=== PATIENT | female | born 1960 | race Caucasian/White ===

== ENCOUNTER 2018-09-10 09:32 | Inpatient (IN) ==
[2018-09-10] MEDS ORDERED: Vancomycin Inj 1,000 MG in Sodium Chlor 0.9% Inj 250 ML IV.SIG ONE (11:52)
[2018-09-10] MEDS ORDERED: Morphine Sulfate Inj 2 MG/ML Vial IV.PUSH ONE (11:53)
--- NOTE | 2018-09-10 11:58 | ED ---
HPI General Chief complaint: Skin/Abscess/Foreign Body Stated complaint: Left hip pain/swollen Time Seen by Provider: 09/10/18 11:36 History of Present Illness HPI narrative: Patient presents to the emergency department with left hip erythema, pain, increased swelling times 3 weeks. Patient is an IV drug user and states that she injects heroin in the affected area. 3 years ago patient had the same type symptoms and was admitted to [facility] for IV antibiotic I had aches and I&D. She is reporting fever of 103.7 approximately 3 days ago. She is also reporting sweating, chills, nausea but no vomiting advises that she used hot packs but that did not help and seem to make everything worse. Related Data Home Medications Medication Instructions Recorded Confirmed No Known Home Medications 09/10/18 09/10/18 Allergies Allergy/AdvReac Type Severity Reaction Status Date / Time clonidine Allergy Severe HIVES Unverified 09/10/18 09:54 Review of Systems ROS: all other systems reviewed are negative FOR[facility]LY [facility] Social History Social History Substance History: Active Abuse Second Hand Smoke Exposure: No Smoking Status: Former smoker Tobacco Type: Cigarettes How Often Do You Have a Drink Containing Alcohol: Never Recent Travel in [facility] within the Last 8 Weeks: No Recent Out of Country Travel within the Last 8 Weeks: No Substance Abuse Detail Heroin: Substance Use Status: Active Route Used Substance Abuse: Intravenously Reason for Use: Get High Immunization History Tetanus Immunization: Unsure Exam Narrative Exam Narrative: GENERAL: No acute distress. SKIN: Focused skin assessment warm/dry. HEAD: Atraumatic. Normocephalic. EYES: Pupils equal and round. No scleral icterus. No injection or drainage. ENT: No nasal bleeding or discharge. Mucous membranes pink and moist. NECK: Trachea midline. No JVD. CARDIOVASCULAR: Regular rate and rhythm. No murmur appreciated. RESPIRATORY: No accessory muscle use. Clear to auscultation. Breath sounds equal bilaterally. GASTROINTESTINAL: Abdomen soft, non-tender, nondistended. Hepatic and splenic margins not palpable. MUSCULOSKELETAL: Left hip erythema, induration, tenderness to palpation, limited range of motion secondary to pain, approximately 2 x 3 cm circular, fluctuant area in the center of erythema NEUROLOGICAL: Awake and alert. No obvious cranial nerve deficits. Motor grossly within normal limits. Normal speech. PSYCHIATRIC: Appropriate mood and affect; insight and judgment normal. Procedures Abscess I/D Site: other (LEFT HIP) Side (if applicable): left Sedation/analgesia: other Anesthetic used: lidocaine 1% Technique: incised with #11 blade Amount of fluid expressed (mL): 5 Irrigation: No Packing used?: none Complications: pain, bleeding and other (Pt did not tolerate procedure for me to correctly I & D abscess on LEFT HIP, states "get the f*& way from me") Course Initial Documented Vital Signs Temperature 97.6 F 09/10/18 09:50 Pulse Rate 73 09/10/18 09:50 Respiratory Rate 24 09/10/18 09:50 Blood Pressure 124/71 09/10/18 09:50 Pulse Oximetry 98 09/10/18 09:50 Last Documented Vital Signs Temperature 97.4 F L 09/11/18 08:00 Pulse Rate 64 09/11/18 08:00 Respiratory Rate 16 09/11/18 08:00 Blood Pressure 109/59 L 09/11/18 08:00 Pulse Oximetry 99 09/11/18 08:00 Medical Decision Making MDM Narrative Medical decision making narrative: Patient presents to the emergency department with left hip pain and swelling. Patient placed on charm filter operator helper, continuous pulse ox, and IV access obtained. Labs, 1 g IV vancomycin, CT with IV contrast of left hip, left hip x-ray, and 2 mg IV morphine ordered. 1550: Patient admitted to hospitalist. Asked that I call Ortho front elevator operator, Dr Larson, which I did and discussed the case. While in ER patient's abscess spontaneously burst. Wound culture and gram stain sent. Alem Aguillon, [employer] midlevel, attempted to I and D the abscess but patient wouldn't allow her to continue after incision was made. See Pal's procedure note. Medical Screen Exam Complete: Yes Emergency Medical Condition: Yes Differential Diagnosis Differential Diagnosis: Cellulitis, abscess, septic joint Lab Data Result diagrams: 09/10/18 12:20 09/10/18 12:20 Lab Results 09/10/18 09/10/18 09/10/18 Range/Units 12:20 12:20 12:20 WBC 11.7 H (4.0-11.0) th/mm3 RBC 4.37 (4.00-5.30) mil/mm3 Hgb 11.6 (11.6-15.3) gm/dL Hct 35.1 (35.0-46.0) % MCV 80.4 (80.0-100.0) fL MCH 26.6 L (27.0-34.0) pg MCHC 33.1 (32.0-36.0) % RDW 14.7 (11.6-17.2) % Plt Count 248 (150-450) th/mm3 MPV 8.0 (7.0-11.0) fL Neut % (Auto) 74.8 H (16.0-70.0) % Lymph % (Auto) 14.5 (9.0-44.0) % [place] % (Auto) 8.8 H (0.0-8.0) % Eos % (Auto) 1.4 (0.0-4.0) % Baso % (Auto) 0.5 (0.0-2.0) % Neut # (Auto) 8.8 H (1.8-7.7) th/mm3 Lymph # (Auto) 1.7 (1.0-4.8) th/mm3 [place] # (Auto) 1.0 H (0.0-0.9) th/mm3 Eos # (Auto) 0.2 (0.0-0.4) th/mm3 Baso # (Auto) 0.1 (0.0-0.2) th/mm3 WBC Differential . Differential Comment Auto diff final ESR (0-30) mm/hr PT 10.7 (9.8-11.6) sec INR 1.1 Ratio APTT 26.9 (23.4-31.7) sec Sodium 138 (136-145) meq/L Potassium 3.4 L (3.5-5.1) meq/L Chloride 105 (98-107) meq/L Carbon Dioxide 29.9 (21.0-32.0) meq/L Anion Gap 3 L (5-15) meq/L BUN 6 L (7-18) mg/dL Creatinine 0.51 (0.50-1.00) mg/dL Estimated GFR Greater than 89 (>89) mL/min Random Glucose 93 (74-106) mg/dL Calcium 8.5 (8.5-10.1) mg/dL Total Bilirubin 0.4 (0.2-1.0) mg/dL AST 38 H (15-37) U/L ALT 29 (10-53) U/L Alkaline Phosphatase 70 (45-117) U/L C-Reactive Protein (0.00-0.30) mg/dL Total Protein 6.9 (6.4-8.2) g/dL Albumin 2.6 L (3.4-5.0) g/dL Urine Color (Yellw/Straw) Urine Clarity (Clear) Urine pH (5.0-8.5) Ur Specific [place] (1.002-1.035) Urine Protein (Neg-Trace) mg/dL Urine Glucose (UA) (Negative) mg/dL Urine Ketones (Negative) mg/dL Urine Occult Blood (Negative) Urine Nitrate (Negative) Urine Bilirubin (Negative) Urine Urobilinogen (Less than 2) mg/dL Ur Leukocyte Esterase (Negative) Urine RBC (0-3) /hpf Urine WBC (0-5) /hpf Ur Squamous Epith Cells (0-5) /hpf Urine Bacteria (None) /hpf Urine Mucus (Occasional) /lpf Micro UA Comment Ur Microscopic Review Urine Culture Comments 09/10/18 09/10/18 09/10/18 Range/Units 12:20 12:20 12:54 WBC (4.0-11.0) th/mm3 RBC (4.00-5.30) mil/mm3 Hgb (11.6-15.3) gm/dL Hct (35.0-46.0) % MCV (80.0-100.0) fL MCH (27.0-34.0) pg MCHC (32.0-36.0) % RDW (11.6-17.2) % Plt Count (150-450) th/mm3 MPV (7.0-11.0) fL Neut % (Auto) (16.0-70.0) % Lymph % (Auto) (9.0-44.0) % [place] % (Auto) (0.0-8.0) % Eos % (Auto) (0.0-4.0) % Baso % (Auto) (0.0-2.0) % Neut # (Auto) (1.8-7.7) th/mm3 Lymph # (Auto) (1.0-4.8) th/mm3 [place] # (Auto) (0.0-0.9) th/mm3 Eos # (Auto) (0.0-0.4) th/mm3 Baso # (Auto) (0.0-0.2) th/mm3 WBC Differential Differential Comment ESR 45 H (0-30) mm/hr PT (9.8-11.6) sec INR Ratio APTT (23.4-31.7) sec Sodium (136-145) meq/L Potassium (3.5-5.1) meq/L Chloride (98-107) meq/L Carbon Dioxide (21.0-32.0) meq/L Anion Gap (5-15) meq/L BUN (7-18) mg/dL Creatinine (0.50-1.00) mg/dL Estimated GFR (>89) mL/min Random Glucose (74-106) mg/dL Calcium (8.5-10.1) mg/dL Total Bilirubin (0.2-1.0) mg/dL AST (15-37) U/L ALT (10-53) U/L Alkaline Phosphatase (45-117) U/L C-Reactive Protein 7.01 H (0.00-0.30) mg/dL Total Protein (6.4-8.2) g/dL Albumin (3.4-5.0) g/dL Urine Color Yellow (Yellw/Straw) Urine Clarity Clear (Clear) Urine pH 7.0 (5.0-8.5) Ur Specific Weston 1.003 (1.002-1.035) Urine Protein Negative (Neg-Trace) mg/dL Urine Glucose (UA) Negative (Negative) mg/dL Urine Ketones Negative (Negative) mg/dL Urine Occult Blood Negative (Negative) Urine Nitrate Negative (Negative) Urine Bilirubin Negative (Negative) Urine Urobilinogen 2.0 H (Less than 2) mg/dL Ur Leukocyte Esterase Trace H (Negative) Urine RBC 1 (0-3) /hpf Urine WBC 1 (0-5) /hpf Ur Squamous Epith Cells 1 (0-5) /hpf Urine Bacteria Rare H (None) /hpf Urine Mucus Few H (Occasional) /lpf Micro UA Comment Culture not ind Ur Microscopic Review Not Reportable Urine Culture Comments Culture not ind Imaging Data Radiologist's impression: Hip CT 09/10/18 11:50 CONCLUSION: 1. 6 x 3.2 cm area of induration with focal central fluid involving the subcutaneous tissues of the left flank inferiorly concerning for abscess. This appears confined to the subcutaneous soft tissues and fat. 2. The left hip is unremarkable in appearance. Hip X-Ray 09/10/18 11:53 CONCLUSION: No acute bony findings Discharge Plan Discharge Disposition Patient Disposition: 30 Still Patient Discharge Condition Condition: Stable Discharge Details Diagnosis: Cellulitis and abscess of left lower extremity, Abscess Physicians Team ED Provider: Ese Delgado Primary Care Provider: Aubrey Harrison Attending Provider: Shelton Laughlin Other Providers: Miguel Larson Todd A Status ED Status: Left Department Discharge Information Discharge Date/Time: 09/10/18 20:04
[2018-09-10 12:41] LABS: Baso # (Auto) 0.1 th/mm3 (0.0-0.2); Baso % (Auto) 0.5 % (0.0-2.0); Eos # (Auto) 0.2 th/mm3 (0.0-0.4); Eos % (Auto) 1.4 % (0.0-4.0); Hematocrit 35.1 % (35.0-46.0); Hemoglobin 11.6 gm/dL (11.6-15.3); Lymph # (Auto) 1.7 th/mm3 (1.0-4.8); Lymph % (Auto) 14.5 % (9.0-44.0); Mean Corpuscular HGB Conc 33.1 % (32.0-36.0); Mean Corpuscular Hemoglobin 26.6 pg (27.0-34.0); Mean Corpuscular Volume 80.4 fL (80.0-100.0); Mono % (Auto) 8.8 % (0.0-8.0); Neut # (Auto) 8.8 th/mm3 (1.8-7.7); Neut % (Auto) 74.8 % (16.0-70.0); Platelet Count 248 th/mm3 (150-450); Red Blood Count 4.37 mil/mm3 (4.00-5.30); Red Cell Distribution Width 14.7 % (11.6-17.2); White Blood Count 11.7 th/mm3 (4.0-11.0)
[2018-09-10 12:50] LABS: Activated Partial Thrombo Time 26.9 sec (23.4-31.7); INR 1.1 Ratio; Prothrombin Time 10.7 sec (9.8-11.6)
[2018-09-10 13:13] LABS: Alanine Aminotransferase 29 U/L (10-53); Albumin 2.6 g/dL (3.4-5.0); Anion Gap 3 meq/L (5-15); Aspartate Aminotransferase 38 U/L (15-37); Blood Urea Nitrogen 6 mg/dL (7-18); Calcium 8.5 mg/dL (8.5-10.1); Carbon Dioxide 29.9 meq/L (21.0-32.0); Chloride 105 meq/L (98-107); Glomerular Filtration Rate Greater Than 89 mL/min (>89); Glucose,Random 93 mg/dL (74-106); Potassium 3.4 meq/L (3.5-5.1); Sodium 138 meq/L (136-145)
[2018-09-10 13:15] LABS: Alkaline Phosphatase 70 U/L (45-117); Total Protein 6.9 g/dL (6.4-8.2)
[2018-09-10 13:17] LABS: Bacteria,Urine Rare /hpf; Bilirubin,Urine Negative (Negative); Clarity,Urine Clear (Clear); Color,Urine Yellow (Yellw/Straw); Glucose,Urine (UA) Negative (Negative); Leukocyte Esterase,Urine Trace (Negative); Mucus,Urine Few /lpf (Occasional); Nitrite,Urine Negative (Negative); Specific Gravity,Urine 1.003 (1.002-1.035); Squamous Epithelial Cell,Urine 1 /hpf (0-5)
--- NOTE | 2018-09-10 13:34 | XR ---
EXAM DATE: 09/10/2018 1:00 PM EST AGE/SEX: 58 years / Female INDICATIONS: Large swollen, red, painful area along left side, hip and upper left thigh, evaluate fo r abscess CLINICAL DATA: This is the patient's initial encounter. Patient reports that signs and symptoms have been present for 4 - 6 days and indicates a pain score of 9/10. MEDICAL/SURGICAL HISTORY: . IV drug user None. COMPARISON: No prior exams available for comparison. FINDINGS: Bony structures are intact and in normal alignment. Joints are intact without dislocation or signifi cant arthropathy. Osseous density is normal. Soft tissues are unremarkable. No radiopaque foreign bodies seen. CONCLUSION: No acute bony findings Electronically signed by: Dale Johnson MD 09/10/2018 1:33 PM EST
--- NOTE | 2018-09-10 14:33 | CT ---
EXAM DATE: 09/10/2018 2:25 PM EST AGE/SEX: 58 years / Female INDICATIONS: Left hip erythema and pain. Evaluate for abscess. CLINICAL DATA: This is the patient's initial encounter. Patient reports that signs and symptoms have been present for 3 weeks and indicates a pain score of 10/10. MEDICAL/SURGICAL HISTORY: . IV drug user. None. RADIATION DOSE: 26.19 CTDI (mGy) COMPARISON: No prior exams available for comparison. TECHNIQUE: Multiple contiguous axial images were acquired using a multirow detector CT scanner withou t contrast and after intravenous administration of 70 ml Omnipaque 350 (iohexol) nonionic water-solu ble contrast as a single exam dose. Multiplanar reconstruction was performed in the sagittal and cor onal planes. Using automated exposure control and adjustment of the mA and/or kV according to patien t size, radiation dose was kept as low as reasonably achievable to obtain optimal diagnostic quality images. DICOM format image data is available electronically for review and comparison. FINDINGS: Examination of the soft tissues along the lateral margin of the left hip demonstrate a large area of induration with a fluid collection measuring at least 6 x 3.2 cm. There is diffuse thickening of the skin above this. This would be concerning for abscess. This appears to be confined to the subcutaneou s soft tissues and fat. The bony structures of the pelvis are intact. The left hip is intact. The soft tissues of the pelvis or visualized. There is no free fluid. The loops of small large bowel are unremarkable. The exam does demonstrate some mildly enlarged nodes in the left inguinal canal likely reactive the largest measur es 1.3 cm. CONCLUSION: 1. 6 x 3.2 cm area of induration with focal central fluid involving the subcutaneous tissues of the left flank inferiorly concerning for abscess. This appears confined to the subcutaneous soft tissues and fat. 2. The left hip is unremarkable in appearance. Electronically signed by: Bob Estrada MD 09/10/2018 2:32 PM EST
--- NOTE | 2018-09-10 15:34 | P.HP ---
History of Present Illness Primary Care Physician: Aubrey Harrison MD Chief Complaint: Skin/Abscess/Foreign Body History of Present Illness: This is a pleasant 58 y/o Female who came to Emergency room with left hip erythema and edema, pain for the last three weeks, she is IV drug user and states that she injects heroin in the affected area. 3 years ago patient had the same type symptoms and was admitted to [facility] for IV antibiotic Status post I and D on that opportunity, reported fever 103.7 approximately 3 days ago. She is also reporting sweating, chills, nausea but no vomiting advises that she used hot packs but that did not help and seem to make everything worse. she has also Hypertension, tobacco dependence. Review of Systems All other systems reviewed negative except as stated in HPI [facility] - History History Provided By: Patient - Medical History Medical History: Medical History (Last Updated 09/10/18 @ 11:31 by Trixie Vasquez RN) Hypertension IV drug abuse - Family History Family History: Family History (Last Updated 09/10/18 @ 16:01 by Javier August MD) Other Family history non-contributory - Tobacco History Second Hand Smoke Exposure: No Tobacco Use In Past 30 Days: No Smoking Status: Former smoker Tobacco Type: Cigarettes - Alcohol History How Often Do You Have a Drink Containing Alcohol: Never - Substance Use History Substance History: Active Abuse - Substance Use Type Heroin Status: Active Route Used: Intravenously Reason for Use: Get High - Travel History Recent Travel in the [facility] Within the Last 8 Weeks: No Recent Travel Out of the Country Within the Last 8 Weeks: No - Immunization History Tetanus Immunization: Unsure Medications and Allergies Allergies Allergy/AdvReac Type Severity Reaction Status Date / Time clonidine Allergy Severe HIVES Unverified 09/10/18 09:54 Home Medications Medication Instructions Recorded Confirmed Type No Known Home Medications 09/10/18 09/10/18 History Exam Vital signs: Vital Signs 09/10/18 09:50 09/10/18 12:59 Temperature 97.6 F Pulse Rate 73 Respiratory Rate 24 19 Blood Pressure 124/71 Pulse Oximetry 98 Intake & Output 09/09/18 09/10/18 09/10/18 18:59 06:59 18:59 Intake Total 250 / 250 Balance 250 / 250 Weight 63.503 kg Intake: IV 250 / 250 Vancomycin Inj 1,000 MG In NS 250 / 250 Inj 250 ML @ 250 mls/hr IV.SIG ONCE ONE Rx#:[id number] Narrative: GENERAL: No acute distress. SKIN: Focused skin assessment warm/dry. HEAD: Atraumatic. Normocephalic. EYES: Pupils equal and round. No scleral icterus. No injection or drainage. ENT: No nasal bleeding or discharge. Mucous membranes pink and moist. NECK: Trachea midline. No JVD. CARDIOVASCULAR: Regular rate and rhythm. No murmur appreciated. RESPIRATORY: No accessory muscle use. Clear to auscultation. Breath sounds equal bilaterally. GASTROINTESTINAL: Abdomen soft, non-tender, nondistended. Hepatic and splenic margins not palpable. MUSCULOSKELETAL: Left hip erythema, induration, tenderness to palpation, limited range of motion secondary to pain, approximately 2 x 3 cm circular, fluctuant area in the center of erythema NEUROLOGICAL: Awake and alert. No obvious cranial nerve deficits. Motor grossly within normal limits. Normal speech. PSYCHIATRIC: Appropriate mood and affect; insight and judgment normal. Results - Labs CBC & Chem 7: 09/10/18 12:20 09/10/18 12:20 Labs: Laboratory Results - last 24 hr 09/10/18 09/10/18 09/10/18 12:20 12:20 12:20 WBC 11.7 H RBC 4.37 Hgb 11.6 Hct 35.1 MCV 80.4 MCH 26.6 L MCHC 33.1 RDW 14.7 Plt Count 248 MPV 8.0 Neut % (Auto) 74.8 H Lymph % (Auto) 14.5 [place] % (Auto) 8.8 H Eos % (Auto) 1.4 Baso % (Auto) 0.5 Neut # (Auto) 8.8 H Lymph # (Auto) 1.7 [place] # (Auto) 1.0 H Eos # (Auto) 0.2 Baso # (Auto) 0.1 WBC Differential . Differential Comment Auto diff final ESR PT 10.7 INR 1.1 APTT 26.9 Sodium 138 Potassium 3.4 L Chloride 105 Carbon Dioxide 29.9 Anion Gap 3 L BUN 6 L Creatinine 0.51 Estimated GFR Greater than 89 Random Glucose 93 Calcium 8.5 Total Bilirubin 0.4 AST 38 H ALT 29 Alkaline Phosphatase 70 C-Reactive Protein Total Protein 6.9 Albumin 2.6 L Urine Color Urine Clarity Urine pH Ur Specific [place] Urine Protein Urine Glucose (UA) Urine Ketones Urine Occult Blood Urine Nitrate Urine Bilirubin Urine Urobilinogen Ur Leukocyte Esterase Urine RBC Urine WBC Ur Squamous Epith Cells Urine Bacteria Urine Mucus Micro UA Comment Ur Microscopic Review Urine Culture Comments 09/10/18 09/10/18 09/10/18 12:20 12:20 12:54 WBC RBC Hgb Hct MCV MCH MCHC RDW Plt Count MPV Neut % (Auto) Lymph % (Auto) [place] % (Auto) Eos % (Auto) Baso % (Auto) Neut # (Auto) Lymph # (Auto) [place] # (Auto) Eos # (Auto) Baso # (Auto) WBC Differential Differential Comment ESR 45 H PT INR APTT Sodium Potassium Chloride Carbon Dioxide Anion Gap BUN Creatinine Estimated GFR Random Glucose Calcium Total Bilirubin AST ALT Alkaline Phosphatase C-Reactive Protein 7.01 H Total Protein Albumin Urine Color Yellow Urine Clarity Clear Urine pH 7.0 Ur Specific [place] 1.003 Urine Protein Negative Urine Glucose (UA) Negative Urine Ketones Negative Urine Occult Blood Negative Urine Nitrate Negative Urine Bilirubin Negative Urine Urobilinogen 2.0 H Ur Leukocyte Esterase Trace H Urine RBC 1 Urine WBC 1 Ur Squamous Epith Cells 1 Urine Bacteria Rare H Urine Mucus Few H Micro UA Comment Culture not ind Ur Microscopic Review Not Reportable Urine Culture Comments Culture not ind - Imaging Impressions Hip CT 09/10/18 11:50 CONCLUSION: 1. 6 x 3.2 cm area of induration with focal central fluid involving the subcutaneous tissues of the left flank inferiorly concerning for abscess. This appears confined to the subcutaneous soft tissues and fat. 2. The left hip is unremarkable in appearance. Hip X-Ray 09/10/18 11:53 CONCLUSION: No acute bony findings Caprini VTE Risk Assessment Caprini VTE Risk Assessment: Moderate/High Risk (score >= 2) Caprini Risk Assessment Model: Point Value = 1 Point Value = 2 Point Value = 3 Point Value = 5 Age 41-60 Minor surgery BMI > 25 kg/m2 Swollen legs Varicose veins or History of unexplained or recurrent spontaneous Oral contraceptives or hormone replacement Sepsis (< 1 month) Serious lung disease, including pneumonia (< 1 month) Abnormal pulmonary function Acute myocardial infarction Congestive heart failure (< 1 month) History of inflammatory bowel disease Medical patient at bed rest Age 61-74 Arthroscopic surgery Major open surgery (> 45 min) Laparoscopic surgery (> 45 min) Malignancy Confined to bed (> 72 hours) Immobilizing plaster cast Central venous access Age >= 75 History of VTE Family history of VTE Factor V Leiden Prothrombin [id number] Lupus anticoagulant Anticardiolipin antibodies Elevated serum homocysteine Heparin-induced thrombocytopenia Other congenital or acquired thrombophilia Stroke (< 1 month) Elective arthroplasty Hip, pelvis, or leg fracture Acute spinal cord injury (< 1 month) Prophylaxis Regimen: Total Risk Factor Score Risk Level Prophylaxis Regimen 0-1 Low Early ambulation 2 Moderate Order ONE of the following: *Sequential Compression Device (SCD) *Heparin 5000 units SQ BID 3-4 Higher Order ONE of the following medications: *Heparin 5000 units SQ TID *Enoxaparin/Lovenox 40 mg SQ daily (WT < 150 kg, CrCl > 30 mL/min) *Enoxaparin/Lovenox 30 mg SQ daily (WT < 150 kg, CrCl > 10-29 mL/min) *Enoxaparin/Lovenox 30 mg SQ BID (WT < 150 kg, CrCl > 30 mL/min) AND/OR *Sequential Compression Device (SCD) 5 or more Highest Order ONE of the following medications: *Heparin 5000 units SQ TID (Preferred with Epidurals) *Enoxaparin/Lovenox 40 mg SQ daily (WT < 150 kg, CrCl > 30 mL/min) *Enoxaparin/Lovenox 30 mg SQ daily (WT < 150 kg, CrCl > 10-29 mL/min) *Enoxaparin/Lovenox 30 mg SQ BID (WT < 150 kg, CrCl > 30 mL/min) AND *Sequential Compression Device (SCD) Assessment and Plan - Plan 1. Left Hip area abscess/Cellulitis started on Vancomycin and Zosyn CT confirmed superficial abscess draining by itself and may need Orthopedic surgery consult, pain medicine and follow blood cultures and wound culture. as per Doctor Delgado she discussed with Doctor Neo he is coming to see the patient may need drainage. on CT scan has 6 x 3.2 cm area of induration with focal central fluid involving the subcutaneous tissues of the left flank inferiorly concerning for abscess. appears confined to subcutaneous soft tissue and fat. 2. Hypertension to continue Home medicines. 3. IV drug abuse strongly recommended to stop behavior DVT prophylaxis with SCDs not awaiting for procedure Patient NPO for probable procedure continue IV fluids following blood cultures. Code Status: Full code. Discussed Condition With: Emergency medicine specialist Doctor Ese Delgado Input and recommendations highly appreciated. Discharge Planning: Once cleared by specialist
[2018-09-10] MEDS ORDERED: Acetaminophen 325 MG Tablet PO PRN (15:43)
[2018-09-10] MEDS ORDERED: Bisacodyl 10 MG Supp RECTAL PRN (15:43)
[2018-09-10] MEDS ORDERED: Vancomycin Consult Pharmacy OTHER PRN (15:46)
[2018-09-10] MEDS ORDERED: Morphine Sulfate Inj 2 MG/ML Vial IV.PUSH PRN (16:07)
[2018-09-10] MEDS: Sod Chloride 0.9% Inj 1,000 ML IV.CONT SCH (18:44)
[2018-09-10] MEDS: Piperacil/Tazo 3.375 GM Premix 50 ML IV.SIG SCH ×2 (18:59→22:04)
[2018-09-10] MEDS: Potassium Chlor 10 mEq Premix 10 MEQ/100 ML PIGGYBACK IV.SIG SCH ×3 (19:31→21:41)
[2018-09-10] MEDS: Senna/Docusate Sodium 8.6/50 MG Tablet PO SCH (21:40)
[2018-09-10] MEDS ORDERED: Potassium Chloride 25 MEQ Effervescent Tablet PO ONE (22:00)
[2018-09-11] MEDS ORDERED: Vancomycin Inj 1,000 MG in Sodium Chlor 0.9% Inj 250 ML IV.SIG SCH (01:00)
[2018-09-11] MEDS: Morphine Sulfate Inj 2 MG/ML Vial IM PRN ×3 (01:27→08:30)
[2018-09-11] MEDS: Sod Chloride 0.9% Inj 1,000 ML IV.CONT SCH ×4 (01:28→23:54)
--- NOTE | 2018-09-11 06:47 | P.CONOP ---
[facility] Orthopedics Consult Note - [facility] Consult date: 09/11/18 Chief complaint: Cellulitis, abscess Narrative: Jossie is a 58-year-old female. She presents the emergency room with a 3-week history of left hip pain and swelling. She has been using IV drugs for over 40 years. She presented to the emergency room with left hip pain, swelling, and redness. This pain is been worsening for the past [address] scan revealed a fluid collection. She has had fevers up to 103.7. She has been having chills and sweating. She has had some drainage over the past 2 days. Pain is progressively worsening. Review of Systems Patient denies weight loss, headache, visual changes, hearing loss, chest pain, palpitations, shortness of breath, nausea, vomiting, no urinary changes, diarrhea, bowel changes, neck pain, back pain, skin rashes, weakness of extremities, easy bleeding, enlarged lymph nodes, numbness of extremities, anxiety, or depression. She complains of left hip pain, swelling, erythema, drainage. She has had fevers, chills, and sweats. Patient's social history, past medical history, and family history were reviewed on chart and with patient. [facility] - History History Provided By: Patient - Medical History Medical History: Medical History (Last Reviewed 09/11/18 @ 06:44 by Tu Fitzpatrick MD) Hypertension IV drug abuse - Family History Family History: Family History (Last Reviewed 09/11/18 @ 06:44 by Tu Fitzpatrick MD) Other Family history non-contributory - Social History I have reviewed the patient's Social History: Yes - Tobacco History Second Hand Smoke Exposure: No Tobacco Use In Past 30 Days: No Smoking Status: Former smoker Tobacco Type: Cigarettes - Alcohol History How Often Do You Have a Drink Containing Alcohol: Never - Substance Use History Substance History: Active Abuse - Substance Use Type Heroin Status: Active Route Used: Intravenously Reason for Use: Get High - Travel History Recent Travel in the [place] Within the Last 8 Weeks: No Recent Travel Out of the Country Within the Last 8 Weeks: No - Immunization History Tetanus Immunization: Unsure Medications and Allergies Active Medications: Active Medications Acetaminophen (Tylenol) 650 mg PO Q4H PRN PRN Reason: Temp > 100.4 Al Hydroxide/Mg Hydroxide (Milk Of Magnesia Liq) 30 ml PO Q12H PRN PRN Reason: Mild Constipation Bisacodyl (Dulcolax Supp) 10 mg RECTAL DAILY PRN PRN Reason: SEVERE CONSITIPATION Sodium Chloride (Ns Inj) 1,000 mls @ 100 mls/hr IV.CONT .Q10H [facility] Last Infusion: 09/11/18 06:18 Dose: 0 mls/hr Piperacillin/Tazobactam/Dextrose (Zosyn 3.375 Gm Premix) 50 mls @ 100 mls/hr IV.SIG Q6H [facility] Last Infusion: 09/10/18 23:18 Dose: Infused Vancomycin HCl 1,000 mg/ (Sodium Chloride) 250 mls @ 250 mls/hr IV.SIG Q12H [facility] Lactulose (Lactulose Liq) 30 ml PO DAILY PRN PRN Reason: SEVERE CONSITIPATION Miscellaneous Information ([facility] Ordered Lab Info) 0 each OTHER ONCE ONE Stop: 09/12/18 00:46 Morphine Sulfate (Morphine Inj) 2 mg IM Q3H PRN PRN Reason: PAIN SCALE 6 TO 10 Last Admin: 09/11/18 04:55 Dose: 2 mg Ondansetron HCl (Zofran Inj) 4 mg IV.PUSH Q6H PRN PRN Reason: NAUSEA OR VOMITING Pharmacy Profile Note (Vancomycin Consult Pharmacy) 1 each OTHER UNSCH PRN PRN Reason: Pharmacy to dose Senna/Docusate Sodium (Ojcelynn-Colace) 1 tab PO BID [facility] Last Admin: 09/10/18 21:40 Dose: Not Given Sennosides (Senokot) 17.2 mg PO Q12H PRN PRN Reason: Moderate Constipation Allergies Allergy/AdvReac Type Severity Reaction Status Date / Time clonidine Allergy Severe HIVES Unverified 09/10/18 09:54 Home Medications Medication Instructions Recorded Confirmed Type No Known Home Medications 09/10/18 09/10/18 History Exam Vital signs: Vital Signs 09/10/18 09:50 09/10/18 12:59 09/10/18 15:00 Temperature 97.6 F Pulse Rate 73 76 Respiratory Rate 24 19 18 Blood Pressure 124/71 131/69 Pulse Oximetry 98 96 09/10/18 19:00 09/10/18 20:00 09/11/18 00:00 Temperature 97 F L 97.4 F L Pulse Rate 89 78 73 Respiratory Rate 16 16 17 Blood Pressure 122/80 108/53 L 112/54 L Pulse Oximetry 99 98 99 Intake & Output 09/10/18 09/10/18 09/11/18 06:59 18:59 06:59 Intake Total 250 / 250 1750 / 1750 Balance 250 / 250 1750 / 1750 Weight 63.503 kg 59.8 kg Intake: IV 250 / 250 550 / 550 NS Inj 1,000 ML @ 100 mls/hr IV 400 / 400 .CONT .Q10H [facility] Rx#:[id number] Zosyn 3.375 GM Premix 50 ML @ 100 / 100 100 mls/hr IV.SIG Q6H [facility] Rx#: [id number] KCl 10 mEq Premix Inj 10 meq In 50 / 50 100 ml @ 100 mls/hr IV.SIG Q1H [facility] Rx#:[id number] Vancomycin Inj 1,000 MG In NS 250 / 250 Inj 250 ML @ 250 mls/hr IV.SIG ONCE ONE Rx#:[id number] Oral 1200 / 1200 Other: # Voids 4 Date of Last Bowel Movement 09/10/18 Narrative: Jossie is a 58-year-old female. General: Awake and alert. No acute distress. Appears well-developed well- nourished Head: Normocephalic, atraumatic pupils are equal Neck: Soft, nontender, trachea midline Abdomen: Soft, nondistended Examination of right arm reveals no pain or deformity with shoulder, elbow, or wrist motion. She has multiple small ulcerations of her skin. There is significant scarring from IV drug use. No fluctuance is noted. Radial pulse is palpable. Normal capillary refill in fingers. Sensation is intact in radial , ulnar, and median nerve distributions. Shuttle Veneering Supervisor strength is +5. No lymphadenopathy noted. Examination of left arm reveals no pain or deformity with shoulder, elbow, or wrist motion. She has multiple small ulcerations of her skin. There is significant scarring from IV drug use. No fluctuance is noted. Radial pulse is palpable. Normal capillary refill in fingers. Sensation is intact in radial, ulnar, and median nerve distributions. Shuttle Veneering Supervisor strength is +5. No lymphadenopathy noted. Examination of left lower extremity reveals swelling, erythema, and warmth over her lateral hip and buttock region. There is a small amount of purulent drainage present. There appears to be an abscess under the skin. She has minimal pain with gentle hip, knee, or ankle motion. Sensation is intact in left foot. Dorsalis pedis pulse is palpable. Normal capillary refill and feet. Thigh and calf compartments are soft. No lymphadenopathy noted. +5 strength of ankle dorsiflexion and plantarflexion. Examination of right lower extremity reveals no pain or deformity with hip, knee , or ankle motion. Skin is intact. Sensation is intact in right foot. Dorsalis pedis pulse is palpable. Normal capillary refill and feet. Thigh and calf compartments are soft. No lymphadenopathy noted. +5 strength of ankle dorsiflexion and plantarflexion. Results - Labs Result Diagrams: 09/10/18 12:20 09/10/18 12:20 Labs: Laboratory Results - last 24 hr 09/10/18 09/10/18 09/10/18 12:20 12:20 12:20 WBC 11.7 H RBC 4.37 Hgb 11.6 Hct 35.1 MCV 80.4 MCH 26.6 L MCHC 33.1 RDW 14.7 Plt Count 248 MPV 8.0 Neut % (Auto) 74.8 H Lymph % (Auto) 14.5 [place] % (Auto) 8.8 H Eos % (Auto) 1.4 Baso % (Auto) 0.5 Neut # (Auto) 8.8 H Lymph # (Auto) 1.7 [place] # (Auto) 1.0 H Eos # (Auto) 0.2 Baso # (Auto) 0.1 WBC Differential . Differential Comment Auto diff final ESR PT 10.7 INR 1.1 APTT 26.9 Sodium 138 Potassium 3.4 L Chloride 105 Carbon Dioxide 29.9 Anion Gap 3 L BUN 6 L Creatinine 0.51 Estimated GFR Greater than 89 Random Glucose 93 Calcium 8.5 Total Bilirubin 0.4 AST 38 H ALT 29 Alkaline Phosphatase 70 C-Reactive Protein Total Protein 6.9 Albumin 2.6 L Urine Color Urine Clarity Urine pH Ur Specific [place] Urine Protein Urine Glucose (UA) Urine Ketones Urine Occult Blood Urine Nitrate Urine Bilirubin Urine Urobilinogen Ur Leukocyte Esterase Urine RBC Urine WBC Ur Squamous Epith Cells Urine Bacteria Urine Mucus Micro UA Comment Ur Microscopic Review Urine Culture Comments 09/10/18 09/10/18 09/10/18 12:20 12:20 12:54 WBC RBC Hgb Hct MCV MCH MCHC RDW Plt Count MPV Neut % (Auto) Lymph % (Auto) [place] % (Auto) Eos % (Auto) Baso % (Auto) Neut # (Auto) Lymph # (Auto) [place] # (Auto) Eos # (Auto) Baso # (Auto) WBC Differential Differential Comment ESR 45 H PT INR APTT Sodium Potassium Chloride Carbon Dioxide Anion Gap BUN Creatinine Estimated GFR Random Glucose Calcium Total Bilirubin AST ALT Alkaline Phosphatase C-Reactive Protein 7.01 H Total Protein Albumin Urine Color Yellow Urine Clarity Clear Urine pH 7.0 Ur Specific [place] 1.003 Urine Protein Negative Urine Glucose (UA) Negative Urine Ketones Negative Urine Occult Blood Negative Urine Nitrate Negative Urine Bilirubin Negative Urine Urobilinogen 2.0 H Ur Leukocyte Esterase Trace H Urine RBC 1 Urine WBC 1 Ur Squamous Epith Cells 1 Urine Bacteria Rare H Urine Mucus Few H Micro UA Comment Culture not ind Ur Microscopic Review Not Reportable Urine Culture Comments Culture not ind - Diagnostic results Imaging: Impressions Hip CT 09/10/18 11:50 CONCLUSION: 1. 6 x 3.2 cm area of induration with focal central fluid involving the subcutaneous tissues of the left flank inferiorly concerning for abscess. This appears confined to the subcutaneous soft tissues and fat. 2. The left hip is unremarkable in appearance. Hip X-Ray 09/10/18 11:53 CONCLUSION: No acute bony findings Hip CT: report reviewed, image reviewed Assessment and Plan - Assessment and Plan Jossie has a long history of IV drug use. She has developed an abscess over her left lateral hip and buttock area. At this point I would recommend surgical debridement. I will plan on surgery tomorrow. N.p.o. after midnight. She will need IV antibiotics as well. The risk and benefits of surgery were discussed with patient. All questions were answered. The risk and benefits of surgery were discussed in depth with patient. The risk of surgery include bleeding, infection, injuries to arteries, nerves, or blood vessels, infection, wound complications, and need for further surgery. I also discussed medical complications including blood clots, pneumonia, stroke, heart attack, and . Informed consent was obtained and all questions were answered. N.p.o. after midnight--plan on surgery MAGDA Dickey A mid-level provider in my office (nurse practitioner or physician ward assistant) may see this patient on follow-up visits and continue to implement the objectives of this plan including: Starting or adjusting medications, injections , cast application, orthotics, brace application, physical therapy, radiological studies (including x-ray, MRI, CT, ultrasound, bone scan), vascular studies, neurologic studies, specialist consultation, and proceeding with surgical management, as appropriate.
[2018-09-11] MEDS: Senna/Docusate Sodium 8.6/50 MG Tablet PO SCH ×2 (08:22→20:33)
[2018-09-11 09:27] LABS: Baso # (Auto) 0.1 th/mm3 (0.0-0.2); Baso % (Auto) 0.5 % (0.0-2.0); Eos # (Auto) 0.4 th/mm3 (0.0-0.4); Eos % (Auto) 2.8 % (0.0-4.0); Hematocrit 41.9 % (35.0-46.0); Hemoglobin 13.8 gm/dL (11.6-15.3); Lymph # (Auto) 2.5 th/mm3 (1.0-4.8); Lymph % (Auto) 18.8 % (9.0-44.0); Mean Corpuscular HGB Conc 32.9 % (32.0-36.0); Mean Corpuscular Volume 78.8 fL (80.0-100.0); Mean Platelet Volume 8.4 fL (7.0-11.0); Mono # (Auto) 0.9 th/mm3 (0.0-0.9); Mono % (Auto) 6.9 % (0.0-8.0); Neut # (Auto) 9.6 th/mm3 (1.8-7.7); Platelet Count 274 th/mm3 (150-450); Red Blood Count 5.32 mil/mm3 (4.00-5.30); Red Cell Distribution Width 14.8 % (11.6-17.2); White Blood Count 13.5 th/mm3 (4.0-11.0)
[2018-09-11] MEDS ORDERED: Influenza (Quadrivalent) Vaccine 0.5 ML Syringe IM ONE (09:30)
[2018-09-11 09:55] LABS: Ovalocytes 1+
[2018-09-11 10:03] LABS: Anion Gap 6 meq/L (5-15); Blood Urea Nitrogen 3 mg/dL (7-18); Calcium 8.8 mg/dL (8.5-10.1); Carbon Dioxide 24.7 meq/L (21.0-32.0); Chloride 112 meq/L (98-107); Glomerular Filtration Rate Greater Than 89 mL/min (>89); Glucose,Random 101 mg/dL (74-106); Potassium 4.4 meq/L (3.5-5.1)
[2018-09-11 10:08] LABS: Sodium 143 meq/L (136-145)
--- NOTE | 2018-09-11 10:36 | P.PN ---
Subjective Interval history: Follow-up left hip abscess history of IVDA. Wants to get off heroin and xanax no hallucinations Physical Exam Vital signs: Vital Signs 09/10/18 12:59 09/10/18 15:00 09/10/18 19:00 Temperature Pulse Rate 76 89 Respiratory Rate 19 18 16 Blood Pressure 131/69 122/80 Pulse Oximetry 96 99 09/10/18 20:00 09/11/18 00:00 09/11/18 06:52 Temperature 97 F L 97.4 F L Pulse Rate 78 73 Respiratory Rate 16 17 18 Blood Pressure 108/53 L 112/54 L Pulse Oximetry 98 99 09/11/18 08:00 Temperature 97.4 F L Pulse Rate 64 Respiratory Rate 16 Blood Pressure 109/59 L Pulse Oximetry 99 Intake & Output 09/10/18 09/11/18 09/11/18 18:59 06:59 18:59 Intake Total 250 / 250 1750 / 1750 Balance 250 / 250 1750 / 1750 Weight 63.503 kg 59.8 kg Intake: IV 250 / 250 550 / 550 NS Inj 1,000 ML @ 100 mls/hr IV 400 / 400 .CONT .Q10H [facility] Rx#:[id number] Zosyn 3.375 GM Premix 50 ML @ 100 / 100 100 mls/hr IV.SIG Q6H [facility] Rx#: [id number] KCl 10 mEq Premix Inj 10 meq In 50 / 50 100 ml @ 100 mls/hr IV.SIG Q1H [facility] Rx#:[id number] Vancomycin Inj 1,000 MG In NS 250 / 250 Inj 250 ML @ 250 mls/hr IV.SIG ONCE ONE Rx#:[id number] Oral 1200 / 1200 Other: # Voids 4 Date of Last Bowel Movement 09/10/18 Narrative: GENERAL: No acute distress. SKIN: Focused skin assessment warm/dry. CARDIOVASCULAR: Regular rate and rhythm. No murmur appreciated. RESPIRATORY: No accessory muscle use. Clear to auscultation. Breath sounds equal bilaterally. GASTROINTESTINAL: Abdomen soft, non-tender, nondistended. MUSCULOSKELETAL: Left hip erythema, induration, tenderness to palpation, limited range of motion secondary to pain, approximately 2 x 3 cm circular, fluctuant area in the center of erythema NEUROLOGICAL: Awake and alert. No obvious cranial nerve deficits. Motor grossly within normal limits. Normal speech. No tremors PSYCHIATRIC: Appropriate mood and affect; insight and judgment normal. Results - Labs CBC & Chem 7: 09/11/18 08:58 09/11/18 08:58 Laboratory Results - last 24 hr 09/10/18 09/10/18 09/10/18 12:20 12:20 12:20 WBC 11.7 H RBC 4.37 Hgb 11.6 Hct 35.1 MCV 80.4 MCH 26.6 L MCHC 33.1 RDW 14.7 Plt Count 248 MPV 8.0 Prelim Diff (Auto) Neut % (Auto) 74.8 H Lymph % (Auto) 14.5 [place] % (Auto) 8.8 H Eos % (Auto) 1.4 Baso % (Auto) 0.5 Neut # (Auto) 8.8 H Lymph # (Auto) 1.7 [place] # (Auto) 1.0 H Eos # (Auto) 0.2 Baso # (Auto) 0.1 WBC Differential . Diff Scan Differential Comment Auto diff final Ovalocytes ESR Hematology Comments PT 10.7 INR 1.1 APTT 26.9 Sodium 138 Potassium 3.4 L Chloride 105 Carbon Dioxide 29.9 Anion Gap 3 L BUN 6 L Creatinine 0.51 Estimated GFR Greater than 89 Random Glucose 93 Calcium 8.5 Total Bilirubin 0.4 AST 38 H ALT 29 Alkaline Phosphatase 70 C-Reactive Protein Total Protein 6.9 Albumin 2.6 L Urine Color Urine Clarity Urine pH Ur Specific [place] Urine Protein Urine Glucose (UA) Urine Ketones Urine Occult Blood Urine Nitrate Urine Bilirubin Urine Urobilinogen Ur Leukocyte Esterase Urine RBC Urine WBC Ur Squamous Epith Cells Urine Bacteria Urine Mucus Micro UA Comment Ur Microscopic Review Urine Culture Comments 09/10/18 09/10/18 09/10/18 12:20 12:20 12:54 WBC RBC Hgb Hct MCV MCH MCHC RDW Plt Count MPV Prelim Diff (Auto) Neut % (Auto) Lymph % (Auto) [place] % (Auto) Eos % (Auto) Baso % (Auto) Neut # (Auto) Lymph # (Auto) [place] # (Auto) Eos # (Auto) Baso # (Auto) WBC Differential Diff Scan Differential Comment Ovalocytes ESR 45 H Hematology Comments PT INR APTT Sodium Potassium Chloride Carbon Dioxide Anion Gap BUN Creatinine Estimated GFR Random Glucose Calcium Total Bilirubin AST ALT Alkaline Phosphatase C-Reactive Protein 7.01 H Total Protein Albumin Urine Color Yellow Urine Clarity Clear Urine pH 7.0 Ur Specific [place] 1.003 Urine Protein Negative Urine Glucose (UA) Negative Urine Ketones Negative Urine Occult Blood Negative Urine Nitrate Negative Urine Bilirubin Negative Urine Urobilinogen 2.0 H Ur Leukocyte Esterase Trace H Urine RBC 1 Urine WBC 1 Ur Squamous Epith Cells 1 Urine Bacteria Rare H Urine Mucus Few H Micro UA Comment Culture not ind Ur Microscopic Review Not Reportable Urine Culture Comments Culture not ind 09/11/18 09/11/18 08:58 08:58 WBC 13.5 H RBC 5.32 H Hgb 13.8 D Hct 41.9 MCV 78.8 L MCH 26.0 L MCHC 32.9 RDW 14.8 Plt Count 274 MPV 8.4 Prelim Diff (Auto) Slide review pending Neut % (Auto) 71.0 H Lymph % (Auto) 18.8 [place] % (Auto) 6.9 Eos % (Auto) 2.8 Baso % (Auto) 0.5 Neut # (Auto) 9.6 H Lymph # (Auto) 2.5 [place] # (Auto) 0.9 Eos # (Auto) 0.4 Baso # (Auto) 0.1 WBC Differential . Diff Scan Auto diff confirmed Differential Comment . Ovalocytes 1+ H ESR Hematology Comments PT INR APTT Sodium 143 Potassium 4.4 D Chloride 112 H Carbon Dioxide 24.7 Anion Gap 6 BUN 3 L Creatinine 0.48 L Estimated GFR Greater than 89 Random Glucose 101 Calcium 8.8 Total Bilirubin AST ALT Alkaline Phosphatase C-Reactive Protein Total Protein Albumin Urine Color Urine Clarity Urine pH Ur Specific [place] Urine Protein Urine Glucose (UA) Urine Ketones Urine Occult Blood Urine Nitrate Urine Bilirubin Urine Urobilinogen Ur Leukocyte Esterase Urine RBC Urine WBC Ur Squamous Epith Cells Urine Bacteria Urine Mucus Micro UA Comment Ur Microscopic Review Urine Culture Comments Microbiology 09/10/18 15:40 Abscess - Hip Gram Stain - Final - Imaging ITS Impressions Hip CT 09/10/18 11:50 CONCLUSION: 1. 6 x 3.2 cm area of induration with focal central fluid involving the subcutaneous tissues of the left flank inferiorly concerning for abscess. This appears confined to the subcutaneous soft tissues and fat. 2. The left hip is unremarkable in appearance. Hip X-Ray 09/10/18 11:53 CONCLUSION: No acute bony findings Assessment and Plan - Plan 1. Left Hip area abscess/Cellulitis with sepsis started on Vancomycin and Zosyn CT confirmed superficial abscess will need debridement by orthopedic surgery and follow blood cultures and wound cultures. Pain management counseled regarding narcotic 2. Hypertension to continue Home medicines. 3. IV drug abuse strongly recommended to stop behavior. Consider Methadone. Librium to cover WD DVT prophylaxis with SCDs hold pharmacological prophylaxis awaiting for procedure
[2018-09-11] MEDS: Piperacil/Tazo 3.375 GM Premix 50 ML IV.SIG SCH ×4 (10:58→23:54)
[2018-09-11] MEDS: Morphine Sulfate Inj 2 MG/ML Vial IV.PUSH PRN ×4 (12:23→21:45)
[2018-09-11] MEDS: Vancomycin Inj 1,000 MG in Sodium Chlor 0.9% Inj 250 ML IV.SIG SCH (23:54)
[2018-09-12] MEDS: Morphine Sulfate Inj 2 MG/ML Vial IV.PUSH PRN ×7 (00:49→23:49)
[2018-09-12] MEDS ORDERED: Chlorhexidine Gluconate 2% 1 Pack (2 Cloths) TOPICAL ONE (02:55)
[2018-09-12] MEDS ORDERED: Sodium Chlor 0.9% Inj 500 ML IV.SIG SCH (03:00)
[2018-09-12] MEDS: Piperacil/Tazo 3.375 GM Premix 50 ML IV.SIG SCH ×5 (03:44→23:53)
[2018-09-12 06:33] LABS: Glomerular Filtration Rate Greater Than 89 mL/min (>89)
[2018-09-12] MEDS: Senna/Docusate Sodium 8.6/50 MG Tablet PO SCH ×2 (08:30→22:52)
--- NOTE | 2018-09-12 09:26 | P.PN ---
Subjective Interval history: Follow-up left hip abscess. Seen in PACU wants to drink water. Physical Exam Vital signs: Vital Signs 09/11/18 12:00 09/11/18 16:00 09/11/18 20:00 Temperature 97.3 F L 97.7 F 97.8 F Pulse Rate 79 73 75 Respiratory Rate 17 18 Blood Pressure 122/59 L 120/71 132/62 Pulse Oximetry 100 17 L 99 09/12/18 00:00 Temperature 97.4 F L Pulse Rate 65 Respiratory Rate 18 Blood Pressure 126/72 Pulse Oximetry 100 Intake & Output 09/11/18 09/12/18 09/12/18 18:59 06:59 18:59 Intake Total 2200 / 2200 400 / 400 Balance 2200 / 2200 400 / 400 Weight 59.3 kg Intake: IV 300 / 300 400 / 400 Zosyn 3.375 GM Premix 50 ML @ 50 / 50 150 / 150 100 mls/hr IV.SIG Q6H [facility] Rx#: [id number] Vancomycin Inj 1,000 MG In NS 250 / 250 250 / 250 Inj 250 ML @ 250 mls/hr IV.SIG Q12H [facility] Rx#:[id number] Oral 1900 / 1900 Other: # Voids 6 2 Date of Last Bowel Movement 09/11/18 09/11/18 # Bowel Movements 6 Narrative: GENERAL: No acute distress. SKIN: Focused skin assessment warm/dry. CARDIOVASCULAR: Regular rate and rhythm. No murmur appreciated. RESPIRATORY: No accessory muscle use. Clear to auscultation. Breath sounds equal bilaterally. GASTROINTESTINAL: Abdomen soft, non-tender, nondistended. MUSCULOSKELETAL: Left hip with dry dressing NEUROLOGICAL: Awake and alert. No obvious cranial nerve deficits. Motor grossly within normal limits. Normal speech. No tremors PSYCHIATRIC: Appropriate mood and affect; insight and judgment normal. Results - Labs CBC & Chem 7: 09/11/18 08:58 09/12/18 05:05 Laboratory Results - last 24 hr 09/11/18 09/11/18 09/12/18 08:58 08:58 05:05 WBC 13.5 H RBC 5.32 H Hgb 13.8 D Hct 41.9 MCV 78.8 L MCH 26.0 L MCHC 32.9 RDW 14.8 Plt Count 274 MPV 8.4 Prelim Diff (Auto) Slide review pending Neut % (Auto) 71.0 H Lymph % (Auto) 18.8 [place] % (Auto) 6.9 Eos % (Auto) 2.8 Baso % (Auto) 0.5 Neut # (Auto) 9.6 H Lymph # (Auto) 2.5 [place] # (Auto) 0.9 Eos # (Auto) 0.4 Baso # (Auto) 0.1 WBC Differential . Diff Scan Auto diff confirmed Differential Comment . Ovalocytes 1+ H Hematology Comments Sodium 143 Potassium 4.4 D Chloride 112 H Carbon Dioxide 24.7 Anion Gap 6 BUN 3 L Creatinine 0.48 L 0.54 Estimated GFR Greater than 89 Greater than 89 Random Glucose 101 Calcium 8.8 Microbiology 09/10/18 15:40 Abscess - Hip Gram Stain - Final 09/10/18 15:40 Abscess - Hip Wound Culture - Preliminary Staphylococcus aureus 09/10/18 12:20 Blood - Peripheral Aerobic Blood Culture - Preliminary No growth in 1 day 09/10/18 12:20 Blood - Peripheral Anaerobic Blood Culture - Preliminary No growth in 1 day 09/10/18 12:05 Blood - Peripheral Aerobic Blood Culture - Preliminary No growth in 1 day 09/10/18 12:05 Blood - Peripheral Anaerobic Blood Culture - Preliminary No growth in 1 day - Imaging ITS Impressions Hip CT 09/10/18 11:50 CONCLUSION: 1. 6 x 3.2 cm area of induration with focal central fluid involving the subcutaneous tissues of the left flank inferiorly concerning for abscess. This appears confined to the subcutaneous soft tissues and fat. 2. The left hip is unremarkable in appearance. Hip X-Ray 09/10/18 11:53 CONCLUSION: No acute bony findings - Procedures Irrigation and debridement of left hip abscess Assessment and Plan - Plan 1. Left Hip area abscess/Cellulitis with sepsis started on Vancomycin and Zosyn CT confirmed superficial abscess status post Irrigation and debridement of left hip abscess follow blood cultures and wound cultures growing staph aureus additional cultures taken from the OR will monitor pain management counseled regarding narcotic 2. Hypertension. Monitor 3. IV drug (heroin and Xanax) abuse strongly recommended to stop behavior. Consider Methadone. Librium to cover WD DVT prophylaxis with SCDs pharmacological prophylaxis per orthopedic surgery
--- NOTE | 2018-09-12 10:33 | P.OP ---
- Preoperative Diagnosis (1) Cellulitis and abscess of left lower extremity (2) Abscess Date of procedure: 09/12/18 Procedure: Irrigation and debridement of left hip abscess Anesthesia: GETA Surgeon: Tu Fitzpatrick MD Industrial Relations Worker: SEDA Szymanski PA-C The surgical procedure was assisted by my physician pest controller assistant. My P.A. presence was necessary throughout this case for the manipulation and positioning of the surgical extremity. My P.A. was assisting me throughout the duration of this procedure. The skill set of a physician pest controller assistant was medically necessary to complete this procedure. During the surgical case the assembler surgical garment was working at the back table and the physician pest controller assistant was directly assisting me. Operation and Findings: Jossie is a 58-year-old female who has a long history of IV drug use. She presented to the hospital with complaints of left hip swelling, redness, and pain. CT scan revealed a abscess of the left hip and thigh. Informed consent was obtained and OpSite was marked. The risk and benefits of surgery were discussed and informed consent was confirmed. Operative site was marked. She is brought the operating room. She is given IV sedation and general anesthesia. She was placed in lateral decubitus position. Timeout procedure was performed. The operative hip was prepped with alcohol followed by DuraPrep and draped in usual sterile fashion. Procedure began with a 4 inch incision over the center of the fluctuant area of the hip. Subcutaneous tissue was dissected with Bovie. There was a thick purulent drainage present. There was also thickened tissue around the abscess. The abscess appeared to be relatively chronic in nature. Tissue cultures were obtained. The abscess was now thoroughly debrided. The abscess extended down into the gluteus fascia. An excisional debridement was performed with curettes, Ronguer, and scalpel. After completion of debridement, the wound was thoroughly irrigated with pulsatile lavage. A drain was placed deep. Subcutaneous tissue was closed with 3-0 PDS and skin was closed with 3-0 nylon. Sterile dressings were applied. Patient was awakened and transferred to recovery room in stable condition.
[2018-09-12] MEDS ORDERED: fentaNYL Citrate Inj 100 MCG/2 ML Ampul ONE (11:03)
--- NOTE | 2018-09-12 11:29 | ECG ---
Date Performed: 09/12/2018 Time Performed: 07:09:16 PTAGE: 58 years EKG: Sinus rhythm NORMAL ECG PREVIOUS TRACING : 10/30/2011 15.48 DOCTOR: Michael Devine Interpretating Date/Time 09/12/2018 11:27:56
[2018-09-12] MEDS: Vancomycin Inj 1,000 MG in Sodium Chlor 0.9% Inj 250 ML IV.SIG SCH (12:20)
[2018-09-12] MEDS: Sod Chloride 0.9% Inj 1,000 ML IV.CONT SCH ×2 (12:23→19:36)
[2018-09-12] MEDS ORDERED: Naloxone Inj 0.4 MG/ML Vial IV.PUSH PRN (12:32)
[2018-09-12] MEDS ORDERED: Pharmacy Ordered Lab Info OTHER ONE (22:45)
[2018-09-13] MEDS: Vancomycin Inj 1,000 MG in Sodium Chlor 0.9% Inj 250 ML IV.SIG SCH ×2 (00:31→10:49)
[2018-09-13] MEDS: Morphine Sulfate Inj 2 MG/ML Vial IV.PUSH PRN ×5 (03:51→20:51)
[2018-09-13] MEDS: Sod Chloride 0.9% Inj 1,000 ML IV.CONT SCH ×3 (03:54→21:01)
[2018-09-13] MEDS: Piperacil/Tazo 3.375 GM Premix 50 ML IV.SIG SCH (06:47)
--- NOTE | 2018-09-13 08:17 | P.PNOP ---
Subjective Interval history: POD 1 s/p I&D left hip doing welll pain controlled. no new complaints Physical Exam Vital signs: Vital Signs 09/12/18 10:55 09/12/18 11:00 09/12/18 11:15 Temperature 97.4 F L 97.6 F Pulse Rate 73 68 63 Respiratory Rate 14 14 14 Blood Pressure 118/69 127/76 134/75 Pulse Oximetry 100 100 100 09/12/18 12:00 09/12/18 16:00 09/12/18 20:00 Temperature 97.2 F L 97.1 F L 97.9 F Pulse Rate 58 L 67 69 Respiratory Rate 17 17 17 Blood Pressure 137/63 137/70 113/64 Pulse Oximetry 96 95 94 L 09/13/18 00:00 09/13/18 02:20 09/13/18 04:00 Temperature 97.5 F L 97.9 F Pulse Rate 91 H 56 L Respiratory Rate 17 18 18 Blood Pressure 128/75 137/71 Pulse Oximetry 96 96 09/13/18 07:56 Temperature 97.8 F Pulse Rate 61 Respiratory Rate 18 Blood Pressure 127/60 Pulse Oximetry 99 Intake & Output 09/12/18 09/13/18 09/13/18 18:59 06:59 18:59 Intake Total 1225 / 1225 1530 / 1530 Output Total Balance 1210 / 1210 1530 / 1530 -30 Weight 58.6 kg 60 kg Intake: IV 300 / 300 450 / 450 Ofirmev Inj 1,000 mg In 100 ml 100 / 100 @ 0 mls/hr IV.SIG .STK-MED ONE Rx#:[id number] Zosyn 3.375 GM Premix 50 ML @ 50 / 50 100 / 100 100 mls/hr IV.SIG Q6H [facility] Rx#: [id number] Vancomycin Inj 1,000 MG In NS 250 / 250 250 / 250 Inj 250 ML @ 250 mls/hr IV.SIG Q12H [facility] Rx#:[id number] Oral 925 / 925 1080 / 1080 Output: Estimated Blood Loss 10 Wound Drainage 5 / # 1 Left Hip 5 / 5 # 1 Left Hip ALEXIS Drain Other: # Voids 3 4 Date of Last Bowel Movement 09/12/18 Weight On Admission 58.6 kg Narrative: LLE: dressings clean and dry. intact. +drain. nvi Results - Labs CBC & Chem 7: 09/11/18 08:58 09/12/18 05:05 Laboratory Results - last 24 hr 09/13/18 00:09 Vancomycin Trough 12.7 H Microbiology 09/12/18 10:24 Abscess - Hip Fungal Smear - Final No fungal elements seen 09/12/18 10:24 Abscess - Hip Gram Stain - Final 09/10/18 12:20 Blood - Peripheral Aerobic Blood Culture - Preliminary No growth in 2 days 09/10/18 12:20 Blood - Peripheral Anaerobic Blood Culture - Preliminary No growth in 2 days 09/10/18 12:05 Blood - Peripheral Aerobic Blood Culture - Preliminary No growth in 2 days 09/10/18 12:05 Blood - Peripheral Anaerobic Blood Culture - Preliminary No growth in 2 days 09/10/18 15:40 Abscess - Hip Gram Stain - Final 09/10/18 15:40 Abscess - Hip Wound Culture - Final Staphylococcus aureus - Procedures Irrigation and debridement of left hip abscess Assessment and Plan - Assessment and Plan 1) Left Hip Abscess s/p I&D - POD 1 -WBAt -daily dressing changes POD 2 -monitor cultures. ID to follow -will need IV Abx -DC drain POD 2 if minimal drainage -ortho surgeries complete -f/u with Angela or SUSANNE in 2 weeks for wound check
--- NOTE | 2018-09-13 10:58 | P.CONID ---
History of Present Illness Service: Infectious Disease Consult date: 09/13/18 Requesting Physician: Shelton Laughlin Reason for Consult: Evaluate patient with left hip abscess Primary Care Provider: Aubrey Harrison MD Chief Complaint: Skin/Abscess/Foreign Body History of Present Illness: Patient seen and examined. Records reviewed. Patient is a 58-year-old female, with long-standing history of IV drug use, she injects usually heroin, has been injecting mostly in her upper arms, and recently started injecting on her lower extremity. She presented to the hospital complaining of 3-week history of pain swelling and redness on her left hip area where she was injecting. She apparently just injected in her L hip one time. She also has been injecting in her legs. She admits to some fevers. She was admitted to the hospital and imaging study showed evidence of an abscess which looks more subcutaneous. She went to surgery and had I&D of the left hip abscess. There was no mention of any involvement of the joint. Since admission she has not been febrile. Her white count is elevated. Sed rate is 35 and C-reactive protein 7. Blood cultures have been negative. Culture from surgery is growing MSSA. Infectious disease consultation has been requested to assist with evaluation and treatment. Review of Systems Constitutional: Reports fever(s), Reports night sweats Eyes: Denies discharge, Denies dry eyes Ears, Nose, Mouth, and Throat: Denies difficulty swallowing, Denies nasal discharge, Denies pain with swallowing, Denies sore throat Cardiovascular: Denies chest pain, Denies shortness of breath Respiratory: Denies chest congestion, Denies cough, Denies shortness of breath Gastrointestinal: Denies abdominal pain, Denies loose stools, Denies nausea, Denies pain with swallowing, Denies vomiting Genitourinary: Denies difficulty urinating, Denies painful urination Musculoskeletal: Reports joint pain, Reports joint swelling Skin/Breast: Reports sores, Reports wounds Neurologic: Denies headache(s) PMFSH - History History Provided By: Patient - Medical History Medical History: Medical History (Last Reviewed 09/13/18 @ 10:52 by Le Nunez MD) Hypertension IV drug abuse - Family History Family History: Family History (Last Reviewed 09/13/18 @ 10:53 by Le Nunez MD) Other Family history non-contributory - Tobacco History Second Hand Smoke Exposure: No Tobacco Use In Past 30 Days: No Smoking Status: Former smoker Tobacco Type: Cigarettes - Alcohol History How Often Do You Have a Drink Containing Alcohol: Never - Substance Use History Substance History: Active Abuse - Substance Use Type Heroin Status: Active Route Used: Intravenously Last Used: 09/09/2018 Reason for Use: Get High - Travel History Recent Travel in the [place] Within the Last 8 Weeks: No Recent Travel Out of the Country Within the Last 8 Weeks: No - Immunization History Tetanus Immunization: Unsure Hx Influenza Vaccine This Season: No Medications and Allergies Active Medications: Active Medications Acetaminophen (Tylenol) 650 mg PO Q4H PRN PRN Reason: Temp > 100.4 Hydrocodone Bitart/Acetaminophen (Donner 5/325) 1 tab PO Q4H PRN PRN Reason: PAIN SCALE 3 TO 5 Hydrocodone Bitart/Acetaminophen (Donner 10/325) 1 tab PO Q4H PRN PRN Reason: PAIN SCALE 6 TO 10 Last Admin: 09/13/18 06:46 Dose: 1 tab Al Hydroxide/Mg Hydroxide (Milk Of Magnesia Liq) 30 ml PO Q12H PRN PRN Reason: Mild Constipation Bisacodyl (Dulcolax Supp) 10 mg RECTAL DAILY PRN PRN Reason: SEVERE CONSITIPATION Chlordiazepoxide (Librium) 5 mg PO Q12H PRN PRN Reason: ANXIETY AND/OR AGITATION Diphenhydramine HCl (Benadryl) 25 mg PO Q6H PRN PRN Reason: ITCHING Sodium Chloride (Ns Inj) 1,000 mls @ 100 mls/hr IV.CONT .Q10H [facility] Last Admin: 09/13/18 03:54 Dose: 100 mls/hr Piperacillin/Tazobactam/Dextrose (Zosyn 3.375 Gm Premix) 50 mls @ 100 mls/hr IV.SIG Q6H [facility] Last Admin: 09/13/18 06:47 Dose: 100 mls/hr Vancomycin HCl 1,000 mg/ (Sodium Chloride) 250 mls @ 250 mls/hr IV.SIG Q12H [facility] Last Infusion: 09/13/18 01:35 Dose: Infused Sodium Chloride (Ns Inj) 500 mls @ 30 mls/hr IV.SIG .Q10H [facility] Last Admin: 09/12/18 12:23 Dose: Not Given Lactulose (Lactulose Liq) 30 ml PO DAILY PRN PRN Reason: SEVERE CONSITIPATION Miscellaneous Information (Misc Nursing Information) 0 each OTHER UNSCH PRN PRN Reason: SEE LABEL COMMENTS Stop: 09/13/18 10:56 Morphine Sulfate (Morphine Inj) 2 mg IV.PUSH Q3H PRN PRN Reason: BREAKTHROUGH PAIN Last Admin: 09/13/18 08:04 Dose: 2 mg Naloxone HCl (Narcan Inj) 0.4 mg IV.PUSH UNSCH PRN PRN Reason: SEE LABEL COMMENTS Ondansetron HCl (Zofran Inj) 4 mg IV.PUSH Q6H PRN PRN Reason: NAUSEA OR VOMITING Pharmacy Profile Note (Vancomycin Consult Pharmacy) 1 each OTHER UNSCH PRN PRN Reason: Pharmacy to dose Senna/Docusate Sodium (Jocelynn-Colace) 1 tab PO BID [facility] Last Admin: 09/12/18 22:52 Dose: Not Given Sennosides (Senokot) 17.2 mg PO Q12H PRN PRN Reason: Moderate Constipation Sodium Chloride (Ns Flush) 2 ml IV.FLUSH BID [facility] Last Admin: 09/12/18 22:52 Dose: 2 ml Sodium Chloride (Ns Flush) 2 ml IV.FLUSH PRN PRN PRN Reason: FLUSH AFTER USING IV ACCESS Allergies Allergy/AdvReac Type Severity Reaction Status Date / Time clonidine Allergy Severe HIVES Verified 09/11/18 12:14 Home Medications Medication Instructions Recorded Confirmed Type No Known Home Medications 09/10/18 09/10/18 History Exam Vital signs: Vital Signs 09/12/18 10:55 09/12/18 11:00 09/12/18 11:15 Temperature 97.4 F L 97.6 F Pulse Rate 73 68 63 Respiratory Rate 14 14 14 Blood Pressure 118/69 127/76 134/75 Pulse Oximetry 100 100 100 09/12/18 12:00 09/12/18 16:00 09/12/18 20:00 Temperature 97.2 F L 97.1 F L 97.9 F Pulse Rate 58 L 67 69 Respiratory Rate 17 17 17 Blood Pressure 137/63 137/70 113/64 Pulse Oximetry 96 95 94 L 09/13/18 00:00 09/13/18 02:20 09/13/18 04:00 Temperature 97.5 F L 97.9 F Pulse Rate 91 H 56 L Respiratory Rate 17 18 18 Blood Pressure 128/75 137/71 Pulse Oximetry 96 96 09/13/18 07:56 Temperature 97.8 F Pulse Rate 61 Respiratory Rate 18 Blood Pressure 127/60 Pulse Oximetry 99 Intake & Output 09/12/18 09/13/18 09/13/18 18:59 06:59 18:59 Intake Total 1225 / 1225 1530 / 1530 Output Total Balance 1210 / 1210 1530 / 1530 -30 / -30 Weight 58.6 kg 60 kg Intake: IV 300 / 300 450 / 450 Ofirmev Inj 1,000 mg In 100 ml 100 / 100 @ 0 mls/hr IV.SIG .STK-MED ONE Rx#:[id number] Zosyn 3.375 GM Premix 50 ML @ 50 / 50 100 / 100 100 mls/hr IV.SIG Q6H [facility] Rx#: [id number] Vancomycin Inj 1,000 MG In NS 250 / 250 250 / 250 Inj 250 ML @ 250 mls/hr IV.SIG Q12H [facility] Rx#:[id number] Oral 925 / 925 1080 / 1080 Output: Estimated Blood Loss Wound Drainage 5 / 5 # 1 Left Hip 5 # 1 Left Hip ALEXIS Drain Other: # Voids 3 4 Date of Last Bowel Movement 09/12/18 Weight On Admission 58.6 kg Narrative: Physical examination GENERAL: Patient is a well-nourished, well-developed female, awake and alert , not in respiratory distress. She does not look toxic appearing SKIN: Cool and dry. Has extensive scarring in her upper arms from IVDU. Also with track zurita on both legs and has superficial abscess in R anterior lobato, draining some dark blood. HEAD: Atraumatic. Normocephalic. No temporal wasting, or tenderness. EYES: [place] conjunctiva. No petechia or hemorrhage. Pupils equal, round and reactive to light. Extraocular movements full and intact. No scleral icterus. No injection or drainage. EARS, NOSE AND THROAT: Nose without bleeding or purulent nasal discharge. No sinus tenderness. Mucous membranes pink and moist. No oral lesions noted. No exudate. No oral thrush. NECK: Trachea midline. Supple and not tender, no meningeal signs CARDIOVASCULAR: Regular rate and rhythm. No murmurs, rubs or gallops heard RESPIRATORY: Clear to auscultation. Breath sounds equal bilaterally. No rales , wheezing or rhonchi ABDOMEN: Soft, non-tender, nondistended. Bowel sounds present and normoactive. No guarding. No rebound. No organomegaly. EXTREMITIES: No clubbing, cyanosis, or edema in both LE. L hip, there is a 3 inch incision, has indurated skin and some erythema, ALEXIS drain in place with bloody fluid, goor ROM L hip joint. No calf tenderness. NEUROLOGICAL: Awake and alert. Cranial nerves grossly intact. Motor grossly within normal limits. PSYCHIATRIC: Normal affect, calm and cooperative. LINE: No evidence of infection Results - Labs CBC & Chem 7: 09/11/18 08:58 09/12/18 05:05 Labs: Laboratory Results - last 24 hr 09/13/18 00:09 Vancomycin Trough 12.7 H - Imaging Hip CT 09/10/18 11:50 CONCLUSION: 1. 6 x 3.2 cm area of induration with focal central fluid involving the subcutaneous tissues of the left flank inferiorly concerning for abscess. This appears confined to the subcutaneous soft tissues and fat. 2. The left hip is unremarkable in appearance. Hip X-Ray 09/10/18 11:53 CONCLUSION: No acute bony findings Assessment and Plan - Plan Impression L hip abscess - skin and subcutaneous tissue, no joint involvement - S/P I and D - C/S MSSA - not bacteremic, temps ok Known long history active IVDU Recommendation Stop Zosyn and Vanco IV Ancef Follow C/S Will D/W ortho: regarding extent of infection; ?oral if no muscle or joint involvement Monitor progress I will follow along with you Thank you for this consultation
[2018-09-13] MEDS: Senna/Docusate Sodium 8.6/50 MG Tablet PO SCH ×2 (11:39→21:01)
--- NOTE | 2018-09-13 14:06 | P.PN ---
Subjective Interval history: Follow-up left hip abscess. Culture with MSSA. Orthopedic surgery recommended IV antibiotic consulted infectious disease who switch antibiotic to IV Ancef. Patient aware I will discontinue morphine sulfate tomorrow Physical Exam Vital signs: Vital Signs 09/12/18 16:00 09/12/18 20:00 09/13/18 00:00 Temperature 97.1 F L 97.9 F 97.5 F L Pulse Rate 67 69 91 H Respiratory Rate 17 17 17 Blood Pressure 137/70 113/64 128/75 Pulse Oximetry 95 94 L 96 09/13/18 02:20 09/13/18 04:00 09/13/18 07:56 Temperature 97.9 F 97.8 F Pulse Rate 56 L 61 Respiratory Rate 18 18 18 Blood Pressure 137/71 127/60 Pulse Oximetry 96 99 09/13/18 11:52 Temperature 97.6 F Pulse Rate 67 Respiratory Rate 20 Blood Pressure 135/63 Pulse Oximetry 96 Intake & Output 09/12/18 09/13/18 09/13/18 18:59 06:59 18:59 Intake Total 1225 / 1225 1530 / 1530 175 / 175 Output Total 15 Balance 1210 / 1210 1530 / 1530 145 / 145 Weight 58.6 kg 60 kg Intake: IV 300 / 300 450 / 450 175 / 175 Ofirmev Inj 1,000 mg In 100 ml 100 / 100 @ 0 mls/hr IV.SIG .STK-MED ONE Rx#:[id number] Zosyn 3.375 GM Premix 50 ML @ 50 / 50 100 / 100 50 / 50 100 mls/hr IV.SIG Q6H [facility] Rx#: [id number] Vancomycin Inj 1,000 MG In NS 250 / 250 250 / 250 125 / 125 Inj 250 ML @ 250 mls/hr IV.SIG Q12H [facility] Rx#:[id number] Oral 925 / 925 1080 / 1080 Output: Estimated Blood Loss Wound Drainage / 5 # 1 Left Hip / # 1 Left Hip ALEXIS Drain Other: # Voids 3 4 Date of Last Bowel Movement 09/12/18 Weight On Admission 58.6 kg Narrative: GENERAL: Patient is a well-nourished, well-developed female, awake and alert , not in respiratory distress. SKIN: Cool and dry. Has extensive scarring in her upper arms from IVDU. Also with track zurita on both legs and has superficial abscess in R anterior lobato, draining some dark blood. CARDIOVASCULAR: Regular rate and rhythm. No murmurs, rubs or gallops heard RESPIRATORY: Clear to auscultation. Breath sounds equal bilaterally. No rales , wheezing or rhonchi ABDOMEN: Soft, non-tender, nondistended. Bowel sounds present and normoactive. No guarding. No rebound. No organomegaly. EXTREMITIES: No clubbing, cyanosis, or edema in both LE. L hip, there is a 3 inch incision, has indurated skin and some erythema, ALEXIS drain in place with bloody fluid, goor ROM L hip joint. No calf tenderness. NEUROLOGICAL: Awake and alert. Cranial nerves grossly intact. Motor grossly within normal limits. PSYCHIATRIC: Normal affect, calm and cooperative. LINE: No evidence of infection Results - Labs CBC & Chem 7: 09/11/18 08:58 09/12/18 05:05 Laboratory Results - last 24 hr 09/13/18 00:09 Vancomycin Trough 12.7 H Microbiology 09/12/18 10:24 Abscess - Hip Gram Stain - Final 09/12/18 10:24 Abscess - Hip Wound Culture - Preliminary Staphylococcus aureus 09/12/18 10:24 Abscess - Hip Gram Stain - Final 09/12/18 10:24 Abscess - Hip Wound Culture - Preliminary Staphylococcus aureus 09/10/18 12:20 Blood - Peripheral Aerobic Blood Culture - Preliminary No growth in 3 days 09/10/18 12:20 Blood - Peripheral Anaerobic Blood Culture - Preliminary No growth in 3 days 09/10/18 12:05 Blood - Peripheral Aerobic Blood Culture - Preliminary No growth in 3 days 09/10/18 12:05 Blood - Peripheral Anaerobic Blood Culture - Preliminary No growth in 3 days 09/12/18 10:24 Abscess - Hip Fungal Smear - Final No fungal elements seen 09/10/18 15:40 Abscess - Hip Gram Stain - Final 09/10/18 15:40 Abscess - Hip Wound Culture - Final Staphylococcus aureus - Imaging ITS Impressions Hip CT 09/10/18 11:50 CONCLUSION: 1. 6 x 3.2 cm area of induration with focal central fluid involving the subcutaneous tissues of the left flank inferiorly concerning for abscess. This appears confined to the subcutaneous soft tissues and fat. 2. The left hip is unremarkable in appearance. Hip X-Ray 09/10/18 11:53 CONCLUSION: No acute bony findings - Procedures Irrigation and debridement of left hip abscess Assessment and Plan - Plan 1. Left Hip area abscess/Cellulitis with sepsis. CT confirmed superficial abscess status post Irrigation and debridement of left hip abscess follow blood cultures and wound cultures growing staph aureus additional cultures taken from the OR. Infectious disease switched to IV Ancef will monitor pain management counseled regarding narcotic 2. Hypertension. Monitor 3. IV drug (heroin and Xanax) abuse strongly recommended to stop behavior. Consider Methadone. Librium to cover WD DVT prophylaxis with SCDs pharmacological prophylaxis per orthopedic surgery
[2018-09-13] MEDS: ceFAZolin Inj 2,000 MG in Sodium Chlor 0.9% Inj 80 ML IV.SIG SCH ×2 (14:14→20:51)
[2018-09-14] MEDS: Sod Chloride 0.9% Inj 1,000 ML IV.CONT SCH (03:26)
[2018-09-14] MEDS: ceFAZolin 2 GM Premix Inj 2 GM/50 ML PIGGYBACK IV.SIG SCH ×3 (05:02→21:03)
--- NOTE | 2018-09-14 07:45 | P.PNOP ---
Subjective Interval history: decreased pain involving left hip pt states she has been an IV drug abuser for 40 years, she cannot go back to her house because her and son continue to use drugs Physical Exam Vital signs: Vital Signs 09/13/18 07:56 09/13/18 11:52 09/13/18 16:00 Temperature 97.8 F 97.6 F 97.7 F Pulse Rate 61 67 69 Respiratory Rate 18 20 17 Blood Pressure 127/60 135/63 132/78 Pulse Oximetry 99 96 99 09/13/18 20:05 09/13/18 23:24 09/14/18 00:00 Temperature 98.4 F 97.3 F L Pulse Rate 72 63 Respiratory Rate 18 8 L 19 Blood Pressure 125/80 125/71 Pulse Oximetry 98 100 Intake & Output 09/13/18 09/14/18 09/14/18 18:59 06:59 18:59 Intake Total 2300 / 2300 2560 / 2560 Output Total 30 / 30 Balance 2270 / 2270 2560 / 2560 Weight 60 kg Intake: IV 1275 / 1275 1600 / 1600 NS Inj 1,000 ML @ 100 mls/hr IV 1000 / 1000 1000 / 1000 .CONT .Q10H [facility] Rx#:[id number] Zosyn 3.375 GM Premix 50 ML @ 50 / 50 100 mls/hr IV.SIG Q6H [facility] Rx#: [id number] Vancomycin Inj 1,000 MG In NS 125 / 125 Inj 250 ML @ 250 mls/hr IV.SIG Q12H [facility] Rx#:[id number] Ancef Inj 2,000 MG In NS Inj 80 100 / 100 100 / 100 ML @ 200 mls/hr IV.SIG Q8H [facility] Rx#:[id number] Oral 1025 / 1025 960 / 960 Output: Wound Drainage # 1 Left Hip ALEXIS Drain Other: # Voids 5 4 Date of Last Bowel Movement 09/13/18 # Bowel Movements 0 Narrative: left hip dressings dry and intact drain in place, continued drainage +NVI Results - Labs CBC & Chem 7: 09/11/18 08:58 09/12/18 05:05 Microbiology 09/12/18 10:24 Abscess - Hip Fungal Smear - Final No fungal elements seen 09/12/18 10:24 Abscess - Hip Acid Fast Bacilli Smear - Final No acid fast bacilli seen 09/12/18 10:24 Abscess - Hip Acid Fast Bacilli Smear - Final No acid fast bacilli seen 09/12/18 10:24 Abscess - Hip Gram Stain - Final 09/12/18 10:24 Abscess - Hip Wound Culture - Preliminary Staphylococcus aureus 09/12/18 10:24 Abscess - Hip Gram Stain - Final 09/12/18 10:24 Abscess - Hip Wound Culture - Preliminary Staphylococcus aureus 09/10/18 12:20 Blood - Peripheral Aerobic Blood Culture - Preliminary No growth in 3 days 09/10/18 12:20 Blood - Peripheral Anaerobic Blood Culture - Preliminary No growth in 3 days 09/10/18 12:05 Blood - Peripheral Aerobic Blood Culture - Preliminary No growth in 3 days 09/10/18 12:05 Blood - Peripheral Anaerobic Blood Culture - Preliminary No growth in 3 days - Procedures Irrigation and debridement of left hip abscess Assessment and Plan - Assessment and Plan 1) Left Hip Abscess s/p I&D - POD #2 -WBAT -daily dressing changes starting today -monitor cultures. ID to follow -will need IV Abx -leave drain in place today, 30 cc drainage, increased from 5 cc -f/u with Angela or SUSANNE in 2 weeks for wound check
[2018-09-14] MEDS: Senna/Docusate Sodium 8.6/50 MG Tablet PO SCH ×2 (09:34→21:04)
[2018-09-14] MEDS: Morphine Sulfate Inj 2 MG/ML Vial IV.PUSH PRN (10:49)
--- NOTE | 2018-09-14 14:03 | P.PN ---
Subjective Interval history: ALEXIS kept 2/2 increased drainage. Started Methadone dw pharmacy and CM Physical Exam Vital signs: Vital Signs 09/13/18 16:00 09/13/18 20:05 09/13/18 23:24 Temperature 97.7 F 98.4 F Pulse Rate 69 72 Respiratory Rate 17 18 8 L Blood Pressure 132/78 125/80 Pulse Oximetry 99 98 09/14/18 00:00 09/14/18 08:00 09/14/18 12:00 Temperature 97.3 F L 97.8 F 97.7 F Pulse Rate 63 67 64 Respiratory Rate 19 18 18 Blood Pressure 125/71 120/69 124/75 Pulse Oximetry 100 98 99 Intake & Output 09/13/18 09/14/18 09/14/18 18:59 06:59 18:59 Intake Total 2300 / 2300 2560 / 2560 Output Total Balance 2270 / 2270 2560 / 2560 Weight 60 kg Intake: IV 1275 / 1275 1600 / 1600 NS Inj 1,000 ML @ 100 mls/hr IV 1000 / 1000 1000 / 1000 .CONT .Q10H [facility] Rx#:[id number] Zosyn 3.375 GM Premix 50 ML @ 50 / 50 100 mls/hr IV.SIG Q6H [facility] Rx#: [id number] Vancomycin Inj 1,000 MG In NS 125 / 125 Inj 250 ML @ 250 mls/hr IV.SIG Q12H [facility] Rx#:[id number] Ancef Inj 2,000 MG In NS Inj 80 100 / 100 100 / 100 ML @ 200 mls/hr IV.SIG Q8H [facility] Rx#:[id number] Oral 1025 / 1025 960 / 960 Output: Wound Drainage # 1 Left Hip ALEXIS Drain Other: # Voids 5 4 Date of Last Bowel Movement 09/13/18 # Bowel Movements 0 Narrative: left hip dressings dry and intact drain in place, continued drainage +NVI Results - Labs CBC & Chem 7: 09/11/18 08:58 09/12/18 05:05 Microbiology 09/10/18 12:20 Blood - Peripheral Aerobic Blood Culture - Preliminary No growth in 4 days 09/10/18 12:20 Blood - Peripheral Anaerobic Blood Culture - Preliminary No growth in 4 days 09/10/18 12:05 Blood - Peripheral Aerobic Blood Culture - Preliminary No growth in 4 days 09/10/18 12:05 Blood - Peripheral Anaerobic Blood Culture - Preliminary No growth in 4 days 09/12/18 10:24 Abscess - Hip Gram Stain - Final 09/12/18 10:24 Abscess - Hip Wound Culture - Final Staphylococcus aureus 09/12/18 10:24 Abscess - Hip Gram Stain - Final 09/12/18 10:24 Abscess - Hip Wound Culture - Final Staphylococcus aureus 09/12/18 10:24 Abscess - Hip Fungal Smear - Final No fungal elements seen 09/12/18 10:24 Abscess - Hip Acid Fast Bacilli Smear - Final No acid fast bacilli seen 09/12/18 10:24 Abscess - Hip Acid Fast Bacilli Smear - Final No acid fast bacilli seen - Procedures Irrigation and debridement of left hip abscess Assessment and Plan - Plan 1. Left Hip area abscess/Cellulitis with sepsis. CT confirmed superficial abscess status post Irrigation and debridement of left hip abscess follow blood cultures and wound cultures growing staph aureus additional cultures taken from the OR. Infectious disease switched to IV Ancef will monitor pain management counseled regarding narcotic dw DR Nunez po abx for 3 weeks on dc. Wd care ALEXIS drain mgt per ortho 2. Hypertension. Monitor 3. IV drug (heroin and Xanax) abuse strongly recommended to stop behavior. Start Methadone. DVT prophylaxis with SCDs Discharge Planning: dc in am. May need C
[2018-09-14] MEDS: Methadone 10 MG Tablet PO SCH (16:10)
[2018-09-15] MEDS: ceFAZolin 2 GM Premix Inj 2 GM/50 ML PIGGYBACK IV.SIG SCH ×3 (04:56→20:06)
[2018-09-15] MEDS: Methadone 10 MG Tablet PO SCH ×2 (04:56→18:14)
--- NOTE | 2018-09-15 08:14 | P.PN ---
Subjective Interval history: Follow-up left hip abscess. ALEXIS drained 2 mL. Patient has new areas of abscess left hip and the right outer arm. Discussed with nursing to alert orthopedic surgeon Physical Exam Vital signs: Vital Signs 09/14/18 12:00 09/14/18 15:58 09/14/18 20:00 Temperature 97.7 F 96.4 F L 98 F Pulse Rate 64 65 78 Respiratory Rate 18 18 17 Blood Pressure 124/75 128/66 117/67 Pulse Oximetry 99 98 96 09/15/18 00:00 Temperature 97.9 F Pulse Rate 60 Respiratory Rate 16 Blood Pressure 123/64 Pulse Oximetry 98 Intake & Output 09/14/18 09/15/18 09/15/18 18:59 06:59 18:59 Intake Total 50 / 50 750 / 750 Output Total 2 / 2 Balance 50 / 50 748 / 748 Weight 58.4 kg Intake: IV 50 / 50 750 / 750 Ancef 2 GM Premix Inj 2 gm In 50 / 50 50 / 50 50 ml @ 100 mls/hr IV.SIG Q8H TOBIAS Rx#:[id number] Output: Wound Drainage 2 / 2 # 1 Left Hip ALEXIS Drain 2 / 2 Other: # Voids 20 Date of Last Bowel Movement 09/15/18 # Bowel Movements 1 Narrative: Right outer arm with 2 x 2 centimeter firm swelling. Left hip posterior to juli is a 4 x 4 cm fluctuant mass which is warm and tender left hip dressings dry and intact drain in place, continued drainage +NVI Results - Labs CBC & Chem 7: 09/11/18 08:58 09/12/18 05:05 Microbiology 09/10/18 12:20 Blood - Peripheral Aerobic Blood Culture - Preliminary No growth in 4 days 09/10/18 12:20 Blood - Peripheral Anaerobic Blood Culture - Preliminary No growth in 4 days 09/10/18 12:05 Blood - Peripheral Aerobic Blood Culture - Preliminary No growth in 4 days 09/10/18 12:05 Blood - Peripheral Anaerobic Blood Culture - Preliminary No growth in 4 days 09/12/18 10:24 Abscess - Hip Gram Stain - Final 09/12/18 10:24 Abscess - Hip Wound Culture - Final Staphylococcus aureus 09/12/18 10:24 Abscess - Hip Gram Stain - Final 09/12/18 10:24 Abscess - Hip Wound Culture - Final Staphylococcus aureus - Procedures Irrigation and debridement of left hip abscess Assessment and Plan - Plan 1. Left Hip area abscess/Cellulitis with sepsis. CT confirmed superficial abscess status post Irrigation and debridement of left hip abscess follow blood cultures and wound cultures growing staph aureus. Infectious disease switched to IV Ancef dw DR Nunez po abx for 3 weeks on dc. Continue pain management counseled regarding narcotic . Wd care ALEXIS drain mgt per ortho. Patient has new areas of abscesses in the left hip and right upper arm. Will alert orthopedic surgery and n.p.o. after midnight 2. Hypertension. Monitor 3. IV drug (heroin and Xanax) abuse strongly recommended to stop behavior. Start Methadone. DVT prophylaxis with SCDs Discharge Planning: Not ready for discharge
[2018-09-15] MEDS: Senna/Docusate Sodium 8.6/50 MG Tablet PO SCH ×2 (14:18→20:06)
[2018-09-16] MEDS: Methadone 10 MG Tablet PO SCH ×2 (03:38→16:55)
[2018-09-16] MEDS: ceFAZolin 2 GM Premix Inj 2 GM/50 ML PIGGYBACK IV.SIG SCH ×2 (03:38→12:19)
--- NOTE | 2018-09-16 06:42 | P.PNOP ---
Subjective Interval history: Resting comfortably. States that she feels the abscess on the right arm is continuing to improve. Physical Exam Vital signs: Vital Signs 09/15/18 08:00 09/15/18 12:00 09/15/18 16:00 Temperature 97.6 F 97.3 F L 97.6 F Pulse Rate 68 58 L 62 Respiratory Rate 16 16 16 Blood Pressure 107/59 L 112/55 L 114/56 L Pulse Oximetry 99 96 98 09/15/18 20:00 09/16/18 00:00 09/16/18 04:00 Temperature 98.2 F 98.7 F Pulse Rate 73 72 Respiratory Rate 16 17 16 Blood Pressure 100/52 L 103/58 L Pulse Oximetry 98 98 Intake & Output 09/15/18 09/15/18 09/16/18 06:59 18:59 06:59 Intake Total 800 / 800 1370 / 1370 50 / 50 Output Total 2 / 2 5 / 5 Balance 798 / 798 1370 / 1370 45 / 45 Weight 58.4 kg 60.8 kg Intake: IV 800 / 800 50 / 50 50 / 50 Ancef 2 GM Premix Inj 2 gm In 100 / 100 50 / 50 50 / 50 50 ml @ 100 mls/hr IV.SIG Q8H TOBIAS Rx#:[id number] Oral 1320 / 1320 Output: Wound Drainage 2 / 2 5 / 5 # 1 Left Hip ALEXIS Drain 2 / 2 5 / 5 Other: # Voids 5 3 Date of Last Bowel Movement 09/15/18 09/15/18 # Bowel Movements 0 Narrative: Left lower extremity: Incisions are well approximated and healing well with mild erythema. She has some dependent edema slightly posterior to the incision. Drain is in place with minimal fluid. Distally she has intact sensation with good capillary refill. Active dorsiflexion plantar flexion of foot. Right lower extremity: Examination revealed no pain with hip or knee range of motion. Wounds over the anterior tibia are continuing to improve. Distally intact sensation with active dorsiflexion plantar flexion of foot Right upper extremity: Small abscess over lateral tricep. No erythema or drainage. Full range of motion of shoulder elbow wrist and fingers. Intact sensation over the radial ulnar median nerve distributions with good capillary refills. Results - Labs CBC & Chem 7: 09/11/18 08:58 09/12/18 05:05 Microbiology 09/10/18 12:20 Blood - Peripheral Aerobic Blood Culture - Final No growth in 5 days 09/10/18 12:20 Blood - Peripheral Anaerobic Blood Culture - Final No growth in 5 days 09/10/18 12:05 Blood - Peripheral Aerobic Blood Culture - Final No growth in 5 days 09/10/18 12:05 Blood - Peripheral Anaerobic Blood Culture - Final No growth in 5 days - Procedures Irrigation and debridement of left hip abscess Assessment and Plan - Assessment and Plan 1) Left Hip Abscess s/p I&D - POD #3 -WBAT -daily dressing changes -monitor cultures. ID to follow -will need IV Abx -DC drain -f/u with Angela or SUSANNE in 2 weeks for wound check
[2018-09-16] MEDS: Senna/Docusate Sodium 8.6/50 MG Tablet PO SCH (08:06)
--- NOTE | 2018-09-16 09:48 | P.PN ---
Subjective Interval history: Follow-up left hip abscess. Patient has controlled pain. ALEXIS drain 5 mL past 24 hours. Discussed with orthopedic surgery, discontinue ALEXIS drain and cleared patient for discharge. New area of concern posterior to incision site is hematoma no need for I&D per orthopedic surgery. Discussed with case management to arrange home care for wound care Physical Exam Vital signs: Vital Signs 09/15/18 12:00 09/15/18 16:00 09/15/18 20:00 Temperature 97.3 F L 97.6 F 98.2 F Pulse Rate 58 L 62 73 Respiratory Rate 16 16 16 Blood Pressure 112/55 L 114/56 L 100/52 L Pulse Oximetry 96 98 98 09/16/18 00:00 09/16/18 04:00 09/16/18 07:54 Temperature 98.7 F Pulse Rate 72 Respiratory Rate 17 16 18 Blood Pressure 103/58 L Pulse Oximetry 98 09/16/18 08:00 Temperature 97.5 F L Pulse Rate 64 Respiratory Rate 12 Blood Pressure 119/59 L Pulse Oximetry 98 Intake & Output 09/15/18 09/16/18 09/16/18 18:59 06:59 18:59 Intake Total 1370 / 1370 50 / 50 50 / 50 Output Total 5 / 5 Balance 1370 / 1370 45 / 45 50 / 50 Weight 60.8 kg Intake: IV 50 / 50 50 / 50 50 / 50 Ancef 2 GM Premix Inj 2 gm In 50 / 50 50 / 50 50 / 50 50 ml @ 100 mls/hr IV.SIG Q8H TOBIAS Rx#:[id number] Oral 1320 / 1320 Output: Wound Drainage 5 / 5 # 1 Left Hip ALEXIS Drain 5 / 5 Other: # Voids 5 3 Date of Last Bowel Movement 09/15/18 09/15/18 # Bowel Movements 0 Narrative: Left lower extremity: Incisions are well approximated and healing well with mild erythema. She has some dependent edema slightly posterior to the incision. Drain is in place with minimal fluid. Posterior to superior portion of wd is a fluid filled vesicle resembling a small hematoma. Distally she has intact sensation with good capillary refill. Active dorsiflexion plantar flexion of foot. Right lower extremity: Examination revealed no pain with hip or knee range of motion. Wounds over the anterior tibia are continuing to improve. Distally intact sensation with active dorsiflexion plantar flexion of foot Right upper extremity: Small abscess over lateral tricep. No erythema or drainage. Full range of motion of shoulder elbow wrist and fingers. Intact sensation over the radial ulnar median nerve distributions with good capillary refills. Results - Labs CBC & Chem 7: 09/11/18 08:58 09/12/18 05:05 Microbiology 09/10/18 12:20 Blood - Peripheral Aerobic Blood Culture - Final No growth in 5 days 09/10/18 12:20 Blood - Peripheral Anaerobic Blood Culture - Final No growth in 5 days 09/10/18 12:05 Blood - Peripheral Aerobic Blood Culture - Final No growth in 5 days 09/10/18 12:05 Blood - Peripheral Anaerobic Blood Culture - Final No growth in 5 days - Imaging ITS Impressions Hip CT 09/10/18 11:50 CONCLUSION: 1. 6 x 3.2 cm area of induration with focal central fluid involving the subcutaneous tissues of the left flank inferiorly concerning for abscess. This appears confined to the subcutaneous soft tissues and fat. 2. The left hip is unremarkable in appearance. Hip X-Ray 09/10/18 11:53 CONCLUSION: No acute bony findings - Procedures Irrigation and debridement of left hip abscess Assessment and Plan - Plan 1. Left Hip area abscess/Cellulitis with sepsis. CT confirmed superficial abscess status post Irrigation and debridement of left hip abscess follow blood cultures and wound cultures growing staph aureus. Infectious disease switched to IV Ancef dw DR Nunez po abx for 3 weeks on dc. Continue pain management counseled regarding narcotic . Wd care ALEXIS drain mgt per ortho. Patient has a small hematoma posterior to the wound, per ortho will monitor for now 2. Hypertension. Monitor 3. IV drug (heroin and Xanax) abuse strongly recommended to stop behavior. Ct Methadone. DVT prophylaxis with SCDs Discharge Planning: Dc by ortho
--- NOTE | 2018-09-16 10:57 | P.PNID ---
Subjective Remarks: Patient is a 58-year-old female, with long-standing history of IV drug use, she injects usually heroin, has been injecting mostly in her upper arms, and recently started injecting on her lower extremity. She presented to the hospital complaining of 3-week history of pain swelling and redness on her left hip area where she was injecting. She apparently just injected in her L hip one time. She also has been injecting in her legs. She admits to some fevers. She was admitted to the hospital and imaging study showed evidence of an abscess which looks more subcutaneous. She went to surgery and had I&D of the left hip abscess. There was no mention of any involvement of the joint. Since admission she has not been febrile. Her white count is elevated. Sed rate is 35 and C-reactive protein 7. Blood cultures have been negative. Culture from surgery is growing MSSA. Infectious disease consultation has been requested to assist with evaluation and treatment. Notes reviewed Temps ok ALEXIS drain still in place C/S MSSA D/W Dr Fitzpatrick last week, infection superficial, no muscle involvement, joint ok Noted a fluctuant area posterior to superior portion of her incision ESR 45 CRP 7 BC negative Antibiotics: Ancef Lines: PIV Past Medical History: HTN IVDU Allergies/Adverse Reactions: Allergies clonidine Allergy (Severe, Verified 09/11/18 12:14) HIVES Objective Vital Signs 09/15/18 12:00 09/15/18 16:00 09/15/18 20:00 Temperature 97.3 F L 97.6 F 98.2 F Pulse Rate 58 L 62 73 Respiratory Rate 16 16 16 Blood Pressure 112/55 L 114/56 L 100/52 L Pulse Oximetry 96 98 98 09/16/18 00:00 09/16/18 04:00 09/16/18 07:54 Temperature 98.7 F Pulse Rate 72 Respiratory Rate 17 16 18 Blood Pressure 103/58 L Pulse Oximetry 98 09/16/18 08:00 Temperature 97.5 F L Pulse Rate 64 Respiratory Rate 12 Blood Pressure 119/59 L Pulse Oximetry 98 Intake & Output 09/15/18 09/16/18 09/16/18 18:59 06:59 18:59 Intake Total 1370 / 1370 50 / 50 50 / 50 Output Total 5 / 5 Balance 1370 / 1370 45 / 45 50 / 50 Weight 60.8 kg Intake: IV 50 / 50 50 / 50 50 / 50 Ancef 2 GM Premix Inj 2 gm In 50 / 50 50 / 50 50 / 50 50 ml @ 100 mls/hr IV.SIG Q8H TOBIAS Rx#:[id number] Oral 1320 / 1320 Output: Wound Drainage # 1 Left Hip ALEXIS Drain Other: # Voids 5 3 Date of Last Bowel Movement 09/15/18 09/15/18 # Bowel Movements 0 09/10/18 12:20 Blood - Peripheral Aerobic Blood Culture - Final No growth in 5 days 09/10/18 12:20 Blood - Peripheral Anaerobic Blood Culture - Final No growth in 5 days 09/10/18 12:05 Blood - Peripheral Aerobic Blood Culture - Final No growth in 5 days 09/10/18 12:05 Blood - Peripheral Anaerobic Blood Culture - Final No growth in 5 days 09/12/18 10:24 Abscess - Hip Gram Stain - Final 09/12/18 10:24 Abscess - Hip Wound Culture - Final Staphylococcus aureus 09/12/18 10:24 Abscess - Hip Gram Stain - Final 09/12/18 10:24 Abscess - Hip Wound Culture - Final Staphylococcus aureus 09/12/18 10:24 Abscess - Hip Fungal Smear - Final No fungal elements seen 09/12/18 10:24 Abscess - Hip Fungal Culture - Pending 09/12/18 10:24 Abscess - Hip Acid Fast Bacilli Smear - Final No acid fast bacilli seen 09/12/18 10:24 Abscess - Hip Mycobacterial Culture - Pending 09/12/18 10:24 Abscess - Hip Acid Fast Bacilli Smear - Final No acid fast bacilli seen 09/12/18 10:24 Abscess - Hip Mycobacterial Culture - Pending Imaging: ITS Impressions Hip CT 09/10/18 11:50 CONCLUSION: 1. 6 x 3.2 cm area of induration with focal central fluid involving the subcutaneous tissues of the left flank inferiorly concerning for abscess. This appears confined to the subcutaneous soft tissues and fat. 2. The left hip is unremarkable in appearance. Hip X-Ray 09/10/18 11:53 CONCLUSION: No acute bony findings Physical Exam: GENERAL: awake and alert, not in respiratory distress. SKIN: Cool and dry. Has extensive scarring in her upper arms from IVDU. Also with track zurita on both legs and has superficial abscess in R anterior lobato, draining some dark blood. EYES: Vansant conjunctiva. No petechia or hemorrhage. Pupils equal, round and reactive to light. Extraocular movements full and intact. No scleral icterus. No injection or drainage. EARS, NOSE AND THROAT: Nose without bleeding or purulent nasal discharge. No sinus tenderness. Mucous membranes pink and moist. No oral lesions noted. No exudate. No oral thrush. NECK: Trachea midline. Supple and not tender, no meningeal signs CARDIOVASCULAR: Regular rate and rhythm. No murmurs, rubs or gallops heard RESPIRATORY: Clear to auscultation. Breath sounds equal bilaterally. No rales , wheezing or rhonchi ABDOMEN: Soft, non-tender, nondistended. Bowel sounds present and normoactive. No guarding. No rebound. No organomegaly. EXTREMITIES: No clubbing, cyanosis, or edema in both LE. L hip, there is a 3 inch incision, has indurated skin and some erythema, ALEXIS drain in place with bloody fluid, good ROM L hip joint. Posterior to the superior portion of her incision, there is a fluid filled area that is about 1.2 inch diameter. No calf tenderness. NEUROLOGICAL: Grossly non-focal. PSYCHIATRIC: calm and cooperative. LINE: No evidence of infection Assessment and Plan - Plan Impression L hip abscess - skin and subcutaneous tissue, no joint involvement - S/P I and D - C/S MSSA - not bacteremic, temps ok Known long history active IVDU Recommendation Continue IV Ancef Follow C/S Will be able to use oral Abx when ready for D/C Will need I and D of the fluctuant area Monitor progress Explained plan to the patient
--- NOTE | 2018-09-16 16:03 | P.DCO ---
- Diagnosis (1) Cellulitis and abscess of left lower extremity Status: Acute - Home Health Nursing Order: Medical education, Medication education-adverse effect, Wound care and dressing changes (Daily dressing starting POD #2 with primapore), Nursing assessment with vital signs - Case Management Consult Case Management Consult-Home Health: Yes - Certification I have seen patient Jossie Garnett on 09/16/18. My clinical findings support the need for the requested home health care services because: Deconditioned with increased weakness I certify that my clinical findings support that this patient is homebound because: Need for psychosocial assistance
--- NOTE | 2018-09-16 16:15 | P.DS ---
Date of admission: 09/10/18 15:58 Primary care physician: Aubrey Harrison MD Brief History from admission: This is a pleasant 58 y/o Female who came to Emergency room with left hip erythema and edema, pain for the last three weeks, she is IV drug user and states that she injects heroin in the affected area. 3 years ago patient had the same type symptoms and was admitted to [facility] for IV antibiotic Status post I and D on that opportunity, reported fever 103.7 approximately 3 days ago. She is also reporting sweating, chills, nausea but no vomiting advises that she used hot packs but that did not help and seem to make everything worse. she has also Hypertension, tobacco dependence. DS: Medications - Discharge Medications Prescriptions: cephalexin [Keflex] 500 mg PO QID #84 cap methadone 10 mg PO Q12H #6 tab DS: Summary Hospital Course: 1. Left Hip area abscess/Cellulitis with sepsis. CT confirmed superficial abscess status post Irrigation and debridement of left hip abscess follow blood cultures and wound cultures growing staph aureus. Infectious disease switched to IV Ancef dw DR Nunez po abx for 3 weeks on dc. Continue pain management counseled regarding narcotic . Wd care ALEXIS drain dc. Patient has a small hematoma posterior to the wound, per ortho will monitor for now 2. Hypertension. Monitor 3. IV drug (heroin and Xanax) abuse strongly recommended to stop behavior. Ct Methadone. DVT prophylaxis with SCDs - Time Spent with Patient Total time spent providing and/or coordinating discharge services: Greater than 30 minutes - Quality: VTE Deep Vein Thrombosis/Pulmonary Embolism Present on Admission: No Exam Vital signs: Vital Signs 09/15/18 20:00 09/16/18 00:00 09/16/18 04:00 Temperature 98.2 F 98.7 F Pulse Rate 73 72 Respiratory Rate 16 17 16 Blood Pressure 100/52 L 103/58 L Pulse Oximetry 98 98 09/16/18 07:54 09/16/18 08:00 09/16/18 12:00 Temperature 97.5 F L 98.0 F Pulse Rate 64 65 Respiratory Rate 18 12 15 Blood Pressure 119/59 L 105/55 L Pulse Oximetry 98 98 Intake & Output 09/15/18 09/16/18 09/16/18 18:59 06:59 18:59 Intake Total 1370 / 1370 50 / 50 290 / 290 Output Total 5 / 5 Balance 1370 / 1370 45 / 45 290 / 290 Weight 60.8 kg Intake: IV 50 / 50 50 / 50 50 / 50 Ancef 2 GM Premix Inj 2 gm In 50 / 50 50 / 50 50 / 50 50 ml @ 100 mls/hr IV.SIG Q8H TOBIAS Rx#:[id number] Oral 1320 / 1320 240 / 240 Output: Wound Drainage 5 / 5 # 1 Left Hip ALEXIS Drain 5 / Other: # Voids 5 3 Date of Last Bowel Movement 09/15/18 09/15/18 # Bowel Movements 0 Narrative: Left lower extremity: Incisions are well approximated and healing well with mild erythema. She has some dependent edema slightly posterior to the incision. Drain is in place with minimal fluid. Posterior to superior portion of wd is a fluid filled vesicle resembling a small hematoma. Distally she has intact sensation with good capillary refill. Active dorsiflexion plantar flexion of foot. Right lower extremity: Examination revealed no pain with hip or knee range of motion. Wounds over the anterior tibia are continuing to improve. Distally intact sensation with active dorsiflexion plantar flexion of foot Right upper extremity: Small abscess(firm and indurated) over lateral tricep. No erythema or drainage. Full range of motion of shoulder elbow wrist and fingers. Intact sensation over the radial ulnar median nerve distributions with good capillary refills. Results Procedures completed during hospitalization: Irrigation and debridement of left hip abscess - Impressions ITS Impressions Hip CT 09/10/18 11:50 CONCLUSION: 1. 6 x 3.2 cm area of induration with focal central fluid involving the subcutaneous tissues of the left flank inferiorly concerning for abscess. This appears confined to the subcutaneous soft tissues and fat. 2. The left hip is unremarkable in appearance. Hip X-Ray 09/10/18 11:53 CONCLUSION: No acute bony findings Discharge Plan - Discharge Disposition Patient Disposition: W/Home Health Service - Discharge Condition Condition: Stable - Discharge Order Discharge Orders: Discharge Order (Routine); Ordered 09/16/18 Ordered By: Shelton Laughlin ED Use Only Admit Order (Routine); Ordered 09/10/18 Ordered By: Ese Delgado - Physicians Team Primary Care Provider: Aubrey Harrison Attending Provider: Shelton Laughlin Other Providers: Miguel Larson MD ; Tu Fitzpatrick MD ; Le Nunez MD
[2018-09-16 18:20] VITALS: BP 116/67; PULSE 72; RESP 16; TEMP 97.7; O2SAT 99
== END 2018-09-16 18:45 | disposition home health service (06) ==
LOC: NEPD 09:32 → NEDA 15:58 → N07 20:57
PROVIDERS: ADMIT Internal Medicine; ATTEND Internal Medicine